=== PATIENT | female | born 1960 | race Caucasian/White ===

== ENCOUNTER → 2018-08-29 15:36 | Outpatient (CLI) | payer OTHER | END | disposition home or self-care (01) | LOC: D.CT 15:36 | DX: C20 Malignant neoplasm of rectum (principal) ==

== ENCOUNTER 2018-09-14 05:37 | Day surgery (SDC) | payer SELFPAY ==
[~2018-09-14] VITALS: Ht 167.6 cm; Wt 68.0 kg
[2018-09-14 06:19] LABS: BASOPHILS 0.2 % (0-2); EOSINOPHILS 4.7 % (0-7); HEMATOCRIT 38.5 % (36.0-48.0); IMMATURE GRANULOCYTES 0.3 % (0-5); LYMPHOCYTES 31.9 % (15-50); MCH 25.4 pg (26.0-34.0); MCHC 31.2 g/dL (31.0-37.0); MCV 81.6 fL (80.0-100.0); MEAN PLATELET VOLUME 9.3 fL (7.4-10.4); MONOCYTES 7.3 % (2-11); NEUTROPHILS 55.6 % (40-80); PLATELET COUNT 261 10x3/uL (130-400); RBC 4.72 10x6/uL (4.00-5.40); RDW 15.2 % (11.5-14.5); WBC 6.4 10x3/uL (4.8-10.8)
[2018-09-14 06:25] LABS: CALC OSMOLALITY 278 mosm/kg (275-300); CARBON DIOXIDE 28.4 mmol/L (21.0-32.0); CHLORIDE - SERUM 100 mmol/L (98-107); CREATININE - SERUM 0.8 mg/dL (0.6-1.3); GLUCOSE 103 mg/dL (74-106); POTASSIUM - SERUM 3.5 mmol/L (3.5-5.1); SODIUM 140 mmol/L (136-145); UREA NITROGEN 13 mg/dL (7-18); eGFR NON AFRICAN AMERICAN 78 mL/min (90-120)
[2018-09-14 06:47] LABS: APTT 26.6 SECONDS (22.8-39.4); INR 0.99 (0.85-1.17); PROTIME 12.6 SECONDS (11.6-15.0)
[2018-09-14 07:22] VITALS: BP 116/71; Ht 167.6 cm; Wt 68.0 kg
[2018-09-14] MEDS ORDERED: NORCO 10-325 TA1 TAB PO (09:00)
--- NOTE | 2018-09-14 11:11 | NUR ---
DC INSTRUCTIONS GIVEN TO PT/FAMILY. STATE UNDERSTANDING. DC'D IV CATH FULLY INTACT. PT VOIDED. PT LEFT UNIT VIA WC AT 1105
--- NOTE | 2018-09-14 13:31 | OP ---
PATIENT NAME: DERRELL LOMBARDO MEDICAL RECORD: [id number] :60 LOCATION:[facility] ADMISSION DATE: SURGEON: PABLO HEADLEY MD DATE OF OPERATION: 09/14/2018 PREOPERATIVE DIAGNOSIS: Adenocarcinoma of the rectum. POSTOPERATIVE DIAGNOSIS: Adenocarcinoma of the rectum. PROCEDURES: 1. Left subclavian vein port placement with fluoroscopic interpretation. 2. Rigid proctoscopy. SURGEON: Pablo Headley MD REPORT OF PROCEDURE: The patient's left chest was prepped and draped in sterile fashion. A needle was used to cannulate the left subclavian vein and a guidewire was advanced with ease. Fluoro was used to note that the wire was in good position in the venous system. A skin incision was made on the left superior lateral chest and a subcutaneous pouch was made over the pectoral fascia. A catheter was tunneled between this pouch and the wire exit site. The port was then sutured to the pectoral fascia using interrupted 2-0 Prolenes times 2. The catheter was cut with a beveled tip at 25 cm. The dilator trocar device was then placed over the wire and the wire and dilator were removed. The catheter tip was advanced with ease through the trocar and the trocar was removed. At the conclusion of the case, we noted that the catheter tip rested in good position at the right atrial superior vena caval junction. This aspirated nonpulsatile dark blood and flushed easily with heparinized saline. The subcutaneous tissues were reapproximated with interrupted 3-0 Vicryl and the skin was closed with running subcutaneous 5-0 Monocryl. After the wound was dressed appropriately, the patient was placed on her left side. A rigid proctoscope was inserted. I could see the mass that was present in the distal rectum. I measured this out. It was between 4 and 5 cm from the anal verge. At this point, we discontinued the rigid proctoscopy. COMPLICATIONS: None. CONDITION: Stable. ANESTHESIA: General endotracheal. BLOOD LOSS: Minimal. TRANSINT:[id number] Voice Confirmation ID: [id number] DOCUMENT ID: [id number] PABLO HEADLEY MD at 133 CC: NICHOLAS ESPINOZA MD, SHAWN SHAFER PRUITT, DAVID and SHANI GONCALVES [id number] DICTATION DATE: 09/14/18904 FRONT END SOFTWARE DEVELOPER: 09/14/1826 [facility] 09/14/18 [facility] [address] [place] [address]
== END 2018-09-14 11:05 | disposition home or self-care (01) ==
LOC: D.OPS 05:37 → D.PAN 08:00 → D.OPS 11:05
PROVIDERS: Anesthesiology; Surgery
DX: C20 Malignant neoplasm of rectum (principal); Z01.812 Encounter for preprocedural laboratory examination

== ENCOUNTER → 2018-10-29 09:09 | Outpatient (CLI) | payer OTHER ==
[2018-09-14 07:22] VITALS: BMI 24.2
[~2018-10-29 09:09] MED LIST: NORCO 10-325 TA1 TAB PO
== END | disposition home or self-care (01) ==
LOC: D.CT 09:09
DX: C20 Malignant neoplasm of rectum (principal)

== ENCOUNTER 2018-11-16 08:51 | Inpatient (IN) | payer OTHER ==
[~2018-11-16] VITALS: Ht 167.6 cm; Wt 64.4 kg
--- NOTE | ~2018-11-16 | DS ---
PATIENT:DERRELL LOMBARDO :60 MEDICAL RECORD: [id number] DISCHARGE SUMMARY ADMISSION DATE: 11/20/18 DISCHARGE DATE: 11/23/18 DATE OF ADMISSION: 11/20/2018 DATE OF DISCHARGE: 11/23/2018 ADMISSION DIAGNOSIS: Rectal cancer. DISCHARGE DIAGNOSIS: Rectal cancer. PROCEDURE: Low anterior resection with diverting ileostomy on 11/20/2018. CONSULTATIONS: None. REPORT OF HOSPITALIZATION: The patient was admitted to the hospital after successful low anterior resection, which required a diverting ileostomy. Postoperatively, the patient did great. Pain was well controlled. Her ostomy began functioning on postop day #2, she was started on clear liquid diet, which she tolerated and was able to be advanced appropriately. Her pain was well controlled. Her main issue was learning ostomy function and care. She was scheduled to be seen by the wound care service for ostomy training and also home health was set up as an outpatient to assist with ostomy care. The patient did have a drain in place, which put out serosanguineous fluid and on the day of discharge it was discontinued. DISCHARGE INSTRUCTIONS: Return to clinic or call with any questions or concerns, fevers, chills, nausea, vomiting or worsening abdominal pain. ACTIVITIES: No heavy lifting or straining for 6 weeks postoperatively. FOLLOWUP: In clinic with me in 10-14 days. DISCHARGE MEDICATIONS: Resume home medications with the inclusion of [place] 10. DISCHARGE DIET: Regular diet as tolerated. TRANSINT:[id number] Voice Confirmation ID: [id number] DOCUMENT ID: [id number] LISBET HEADLEY MD CC: [id number] DICTATION DATE: 11/23/18 1220 INFORMATION SYSTEMS PROJECT MANAGER: 11/24/18 0857 DIS IN 11/23/18 [facility] [address] [place] [id number]
[2018-11-19] MEDS ORDERED: [UNRECOGNIZED DRUG - REMARK] (09:21)
[2018-11-19 10:13] LABS: BASOPHILS 0.2 % (0-2); EOSINOPHILS 2.8 % (0-7); HEMATOCRIT 37.7 % (36.0-48.0); HEMOGLOBIN 11.9 g/dL (12-16); IMMATURE GRANULOCYTES 0.2 % (0-5); LYMPHOCYTES 14.3 % (15-50); MCH 27.4 pg (26.0-34.0); MCHC 31.6 g/dL (31.0-37.0); MCV 86.7 fL (80.0-100.0); MEAN PLATELET VOLUME 9.5 fL (7.4-10.4); MONOCYTES 7.1 % (2-11); NEUTROPHILS 75.4 % (40-80); PLATELET COUNT 254 10x3/uL (130-400); RBC 4.35 10x6/uL (4.00-5.40); RDW 18.1 % (11.5-14.5); WBC 5.7 10x3/uL (4.8-10.8)
[2018-11-19 10:41] LABS: APTT 29.1 SECONDS (22.8-39.4); INR 0.97 (0.85-1.17); PROTIME 12.4 SECONDS (11.6-15.0)
[2018-11-20] VITALS (10 sets, daily range): BP systolic 105–160; BP diastolic 60–75; BMI 23.3
[2018-11-20] MEDS ORDERED: LOMOTIL 2.5-0.1 EAC1 PO (08:36)
--- NOTE | 2018-11-20 10:59 | NUR ---
1022 TIMEOUT FOR WASHING OUT OF RECTUM, MERRY TAFOYA WASHED OUT RECTUM, JUHI.
--- NOTE | 2018-11-20 14:00 | NUR ---
RECIEVED REPORT FROM SAILAJA LAWSON, PACU. PT HAD A LOWER ANTERIOR RESECTION, ILEOSTOMY. POST PROCEDURE VS, BP 137/73, HR 72, SPO2 98, RR 18, T 97. PT ARRIVED IN BED, PT HAVE BLANCO ON, WITH COLOSTOMY BAG ON LEFT SUPRAPUBIC ABDOMEN, COLOSTOMY BAG HAVE A LITTLE BLOODY DRAINAGE. ANT DRAIN TO RIGHT LOWER ABD QUADRANT. IV IN LEFT HAND, 20G. PT CURRENTLY ON SNELLER HAND DILAUDID. INITIAL ASSESMENT COMPLETED. PT WAS NOT A GOOD HISTORIAN BECAUSE SHE WAS A LITTLE SEDATED ON ARRIVAL. FAMILY AT [facility], HELPED TO ANSWER MOST OF THE QUESTION. PT DENIES ANY NEEDS FOR PAIN AT THIS TIME. WILL CPOC. CL IN REACH, BED IN LOW, SR UPX2.
--- NOTE | 2018-11-20 14:26 | NUR ---
EMPTIED 90CC FROM ANT DRAIN AT 1420 IN PACU.
--- NOTE | 2018-11-20 15:10 | OP ---
PATIENT NAME: DERRELL LOMBARDO MEDICAL RECORD: [id number] :60 LOCATION:[id number] ADMISSION DATE:11/20/18 SURGEON: PABLO HEADLEY MD DATE OF OPERATION: 11/20/2018 PREOPERATIVE DIAGNOSIS: Rectal cancer. POSTOPERATIVE DIAGNOSIS: Rectal cancer. PROCEDURE: Low anterior resection with diverting ileostomy. SURGEON: Pablo Headley MD GROUNDS SUPERVISOR: Merlyn King APRN REPORT OF PROCEDURE: The patient's abdomen was prepped and draped in sterile fashion. A midline incision was made in the lower abdomen. Electrocautery was used to dissect through the subcutaneous tissues and through the fascia until we entered the abdominal cavity. There were some adhesions of the omentum to the anterior abdominal wall towards the pelvis and these were taken down with electrocautery. The patient also had some adhesions of the sigmoid colon down to the pelvis from previous total abdominal hysterectomy. We took these down using electrocautery and sharp dissection. We eventually had everything free in the pelvis. I did not feel any evidence of any mass or lesions present in the pelvis. I made a window on the proximal mesorectum and transected the rectum using a 55 blue load ADRYAN stapler. The mesentery was then taken down with sequential clamp and tie technique with care taken to take down the patient's superior hemorrhoidal vessel. We penetrated the posterior avascular plane overlying the pubic bone and followed this down to the base of the pelvis. As we came through this, we were able to visualize the right and left ureters and these were not damage throughout this portion of the procedure. The peritoneal reflection overlying the pelvis was then taken down using electrocautery and using blunt dissection, I was able to dissect through this fatty tissue overlying the rectum until we got down into the pelvis. We eventually took down the lateral stalk vessels using Harmonic scalpel. At this point, we had the rectum completely freed up from all surrounding attachments and the pelvis was free of any structures in the bladder and ureters. I could feel the mass present, but there was some normal tissue distal to this. We used a 30 blue load TA stapler and transected the rectum near the anus. This open end of the bowel was sent off for frozen specimen and reports came back that there was no evidence of carcinoma present at the distal margin of the rectum. At this point, we elected to perform a low anterior resection. An opening was made in the distal sigmoid colon and a 29 EEA anvil was inserted. A 2-0 Prolene was used to make a pursestring around this. We then performed an end-to-end anastomosis with a 29 EEA stapler under direct visualization. At the conclusion of this, we had a 2 intact rings of tissue and the staple line did not have any evidence of a leak when placed under water and air was instilled in the rectum. We then placed a 19-Turkish Ayad drain into the pelvis and brought it out through the left lower quadrant. This was sutured into place with a 2-0 nylon. We then made an opening in the right lower quadrant and using electrocautery, came down through the subcutaneous tissues in 2 layers of fascia and then eviscerated the loop of bowel about 15 cm proximal to the terminal ileum. This bowel was clamped and left in position for diverting loop ileostomy. The abdomen was irrigated out thoroughly with normal saline and care was taken to assure there was no sign of any bleeding. At this point, the midline fascia was OPERATIVE REPORT [id number] DERRELL LOMBARDO closed with running #1 looped PDS and the subcutaneous tissues were reapproximated with running 3-0 Vicryl. The skin was then closed with fatoumata. We then performed maturation of a diverting loop ileostomy. This was done by making a longitudinal incision with electrocautery and then brooking the bowel down on itself using 4-0 Vicryls to fold over the tissues. A 14-Turkish red rubber catheter was used as a bridge and this was tied over the top of this using 3-0 silks. There was a good brooked ileostomy with no sign of any active bleeding. We then applied dressings to all of the wounds. COMPLICATIONS: None. CONDITION: Stable. ANESTHESIA: General endotracheal. BLOOD LOSS: 100 mL. TRANSINT:[id number] Voice Confirmation ID: [id number] DOCUMENT ID: [id number] PABLO HEADLEY MD at 1510 CC: NICHOLAS ESPINOZA MD, Payton SHAFER DAVID [id number] DICTATION DATE: 11/20/18 1328 THERAPY ADMINISTRATIVE ASSISTANT: 11/20/18 1422 ADM IN [place] [id number] [place] [id number]
--- NOTE | 2018-11-20 20:38 | NUR ---
LYING QUEITLY.NO COMPLAINTS VOICED. CARPET INSTALLER IN USE FOR PAIN CONTROL.ANT DRAIN TO LL ABD INTACT AND COMPRESSED.COLOSTOMY APPLIANCE INTACT TO RIGHT ABD WITH SCANT AMT BLOOD TO STOMA SITE. MID ABD DRESSING INTACT WITHOUT DRAINAGE NOTED. CL IN REACH
[2018-11-21 01:33] VITALS: BP 120/42
--- NOTE | 2018-11-21 04:01 | NUR ---
I have reviewed this patient and I concur with the Shift Assessment completed by the Licensed Practical Nurse today this shift.
[2018-11-21 04:48] VITALS: BP 116/50
[2018-11-21 05:20] LABS: BASOPHILS 0 % (0-2); EOSINOPHILS 0 % (0-7); HEMATOCRIT 30.3 % (36.0-48.0); IMMATURE GRANULOCYTES 0.1 % (0-5); LYMPHOCYTES 5.9 % (15-50); MCV 84.9 fL (80.0-100.0); MEAN PLATELET VOLUME 10.1 fL (7.4-10.4); MONOCYTES 8.6 % (2-11); NEUTROPHILS 85.4 % (40-80); PLATELET COUNT 235 10x3/uL (130-400); RBC 3.57 10x6/uL (4.00-5.40); RDW 17.3 % (11.5-14.5)
[2018-11-21 05:38] LABS: CALC OSMOLALITY 273 mosm/kg (275-300); CALCIUM 8.3 mg/dL (8.5-10.1); CARBON DIOXIDE 26.6 mmol/L (21.0-32.0); CHLORIDE - SERUM 102 mmol/L (98-107); CREATININE - SERUM 0.6 mg/dL (0.6-1.3); GLUCOSE 106 mg/dL (74-106); POTASSIUM - SERUM 3.6 mmol/L (3.5-5.1); SODIUM 138 mmol/L (136-145); UREA NITROGEN 6 mg/dL (7-18); eGFR NON AFRICAN AMERICAN > 90 mL/min (90-120)
[2018-11-21 05:43] LABS: WBC 9.8 10x3/uL (4.8-10.8)
[2018-11-21 09:07] VITALS: BP 115/49
--- NOTE | 2018-11-21 10:22 | NUR ---
PT BIJU TITUS BED, NO S/S OF DISTRWESS, PT HAS TORADOL ADDED TO MAR, ADMINISTERED SCHEDULD MEDICATION, PT STATED PAIN IS AT A 0 ADVISED THIS WILL HELP KEEP THE PAIN AT A MINIMUM. CL IN REACH, BED IN LOWEST POSITION, CONTINUE WITH PLAN OF CARE
[2018-11-21 13:27] VITALS: Ht 167.6 cm; Wt 64.4 kg
[2018-11-21 13:29] VITALS: BP 112/58
--- NOTE | 2018-11-21 18:18 | NUR ---
I have reviewed this patient and I concur with the Shift Assessment completed by the Licensed Practical Nurse today this shift.
--- NOTE | 2018-11-21 21:02 | NUR ---
AWAKE,ALERT.NO COMPLAITNS VOCIED. SUPERVISOR WASH HOUSE DILAUDID IN USE FOR PAIN CONTROL.MID ABD INCISION INTACT WITH NO DRAINAGE NOTED. ANT TO LEFT ABD INTACT AND COMPRESSED. COLOSTOMY TO RIGHT SIDE WITH BLOODY DRAINAGE NOTED. CL IN REACH. NO DISTRESS NOTED.
[2018-11-21 21:47] VITALS: BP 92/39
--- NOTE | 2018-11-22 03:04 | NUR ---
I have reviewed this patient and I concur with the Shift Assessment completed by the Licensed Practical Nurse today this shift.
[2018-11-22 04:37] VITALS: BP 108/43
[2018-11-22 05:28] LABS: BASOPHILS 0.1 % (0-2); EOSINOPHILS 1.3 % (0-7); HEMATOCRIT 28.5 % (36.0-48.0); HEMOGLOBIN 8.9 g/dL (12-16); IMMATURE GRANULOCYTES 0.3 % (0-5); LYMPHOCYTES 8.7 % (15-50); MCH 27.1 pg (26.0-34.0); MCHC 31.2 g/dL (31.0-37.0); MCV 86.6 fL (80.0-100.0); MEAN PLATELET VOLUME 9.1 fL (7.4-10.4); MONOCYTES 7.2 % (2-11); NEUTROPHILS 82.4 % (40-80); RBC 3.29 10x6/uL (4.00-5.40); RDW 17.3 % (11.5-14.5); WBC 7.6 10x3/uL (4.8-10.8)
[2018-11-22 05:35] LABS: PLATELET COUNT 184 10x3/uL (130-400)
[2018-11-22 05:46] LABS: CALC OSMOLALITY 272 mosm/kg (275-300); CALCIUM 7.7 mg/dL (8.5-10.1); CARBON DIOXIDE 22.9 mmol/L (21.0-32.0); CHLORIDE - SERUM 104 mmol/L (98-107); CREATININE - SERUM 0.7 mg/dL (0.6-1.3); GLUCOSE 71 mg/dL (74-106); POTASSIUM - SERUM 3.3 mmol/L (3.5-5.1); SODIUM 139 mmol/L (136-145); UREA NITROGEN 5 mg/dL (7-18); eGFR NON AFRICAN AMERICAN > 90 mL/min (90-120)
--- NOTE | 2018-11-22 09:45 | NUR ---
PT RESTING IN BED. RESP EVEN AND UNLABORED. REPORTS PAIN 0/10 AT THIS TIME. VOICES ACTIVITY ASSISTANT CONTROLLING PAIN. IV TO LEFT HAND WITH NS @ 125ML/HR INFUSING VIA PUMP. SITE WITHOUT REDNESS OR EDEMA. MIDLINE DRESSING TO ABDOMEN C/D/I. ANT DRAIN INTACT, DRAINING BLOOD TINGED DRAINAGE. COLOSTOMY STOMA PINK DRAINING DARK LIQUID STOOL. F/C PATENT TO GRAVITY. DENIES FURTHER NEEDS AT THIS TIME. CL WITHIN REACH. ENCOURAGED TO CALL WITH NEEDS. CONTINUE POC
[2018-11-22 10:39] VITALS: BP 96/52
--- NOTE | 2018-11-22 11:38 | MORECARE ---
CASE MANAGEMENT DISCHARGE SUMMARY PATIENT: DERRELL LOMBARDO UNIT: [id number] ADM DATE: 11/20/18 AGE: 58 : 60 SEX: F ROOM/BED: D.2220 AUTHOR: YASIR VINSON PHYSICIAN: REFERRING PHYSICIAN: LISBET HEADLEY MD DATE OF SERVICE: 11/22/18 Discharge Plan Patient Name: DERRELL LOMBARDO Facility: [facility]:[place] : 1960 Planned Disposition: Home with Home Health Anticipated Discharge Date: Discharge Date: Expected LOS: Initial Reviewer: [email or web address] Initial Review Date: 11/20/2018 Generated: 11/22/18 12:38 pm Patient Name: DERRELL LOMBARDO Page [id number] at 1138 All edits/amendments must be made on the electronic document DICTATION DATE: 11/22/181136 BRINE TANK TENDER: KYLIE 11/22/18 1137 RPT#: [id number] DC DATE: STATUS: ADM IN [facility] [address] [place] [address] END OF REPORT
--- NOTE | 2018-11-22 11:47 | MORECARE ---
CASE MANAGEMENT DISCHARGE SUMMARY PATIENT: DERRELL VARGAS UNIT: [id number] ADM DATE: 11/20/18 AGE: 58 : 60 SEX: F ROOM/BED: D.2220 AUTHOR: YASIR VINSON PHYSICIAN: REFERRING PHYSICIAN: LISBET HEADLEY MD DATE OF SERVICE: 11/22/18 Discharge Plan Patient Name: DERRELL VARGAS [facility] [facility] 1960 Planned Disposition: Home with Home Health Anticipated Discharge Date: Discharge Date: Expected LOS: Initial Reviewer: [email or web address] Initial Review Date: 11/20/2018 Generated: 11/22/18 12:46 pm DCPIA - Discharge Planning Initial Assessment Updated by [email or web address]: Telma Jacobs on 11/22/18 11:39 am * Is the patient Alert and Oriented? Yes * How many steps to enter\exit or inside your home? * PCP jose azevedo, [facility] * [facility] * Preadmission Environment Home with Family * ADLs Independent * Equipment None * List name and contact numbers for known caregivers / representatives who currently or will assist patient after discharge: Josef Vargas [phone] * Verbal permission to speak to the caregivers and representatives has been obtained from the patient. N/A * Community resources currently utilized None * Additional services required to return to the preadmission environment? Yes * Can the patient safely return to the preadmission environment? Yes * Has this patient been hospitalized within the prior 30 days at any hospital? No Last DP export: 11/22/18 10:38 a Patient Name: DERRELL VARGAS Page [phone] at 1147 All edits/amendments must be made on the electronic document DICTATION DATE: 11/22/18 1146 USER SUPPORT SPECIALIST: KYLIE 11/22/18 1146 RPT#: [id number] DC DATE: STATUS: ADM IN [facility] [address] [place] [address] END OF REPORT
--- NOTE | 2018-11-22 12:03 | MORECARE ---
CASE MANAGEMENT DISCHARGE SUMMARY PATIENT: DERRELL VARGAS UNIT: [id number] ADM DATE: 11/20/18 AGE: 58 : 60 SEX: F ROOM/BED: D.2220 AUTHOR: ALISSONDOC PHYSICIAN: REFERRING PHYSICIAN: LISBET HEADLEY MD DATE OF SERVICE: 11/22/18 Discharge Plan Patient Name: DERRELL VARGAS Facility: [facility]:[place] : 1960 Planned Disposition: Home with Home Health Anticipated Discharge Date: Discharge Date: Expected LOS: Initial Reviewer: [email or web address] Initial Review Date: 11/20/2018 Generated: 11/22/18 1:03 pm Comments DCP- Discharge Planning Updated by [email or web address]: Telma Jacobs on 11/22/18 11:[address] Patient Name: DERRELL VARGAS Admission Status: Elective Accout number: [id number] Admission Date: 11-20-2018 : 1960 Admission Diagnosis: Attending: LISBET HEADLEY Current LOS: 2 Anticipated DC Date: Planned Disposition: Home with Home Health [facility] Discharge Planning Comments: CM met with patient to complete initial dc planning assessment. CM educated patient on the CM role and verbal consent given by patient to complete assessment. Patient lives at home with her . At discharge patient plans to return home and feels this is a safe discharge. CM discussed availability of home health, rehab services, and medical equipment. She states she is independent with her care, but she is a new ostomy and would like to have home health for ostomy teaching and wound care. Her daughter is coming into town this weekend. LISA with [facility], I called and spoke with Shruti. I also left message with Tahira the wound care nurse for information about supplies. CM will continue to follow and will assist as needed with dc plans/needs. Heavy Line Technician: Telma Jacobs DCPIA - Discharge Planning Initial Assessment Updated by [email or web address]: Telma Jacobs on 11/22/18 11:39 am * Is the patient Alert and Oriented? Yes * How many steps to enter\exit or inside your home? * PCP jose azevedo, [facility] * [facility] * Preadmission Environment Home with Family * ADLs Independent * Equipment None * List name and contact numbers for known caregivers / representatives who currently or will assist patient after discharge: Josef Vargas [phone] * Verbal permission to speak to the caregivers and representatives has been obtained from the patient. N/A * Community resources currently utilized None * Additional services required to return to the preadmission environment? Yes * Can the patient safely return to the preadmission environment? Yes * Has this patient been hospitalized within the prior 30 days at any hospital? No Last DP export: 11/22/18 10:47 a Patient Name: DERRELL VARGAS Page 06618 at 1203 All edits/amendments must be made on the electronic document DICTATION DATE: 11/22/181202 BUFFER NICKEL: KYLIE 11/22/181202 RPT#: [id number] DC DATE: STATUS: ADM IN [facility] [address] [place] [address] END OF REPORT
--- NOTE | 2018-11-22 12:13 | MORECARE ---
CASE MANAGEMENT DISCHARGE SUMMARY PATIENT: DERRELL VARGAS UNIT: [id number] ADM DATE: 11/20/18 AGE: 58 : 60 SEX: F ROOM/BED: D.2220 AUTHOR: ALISSONDOC PHYSICIAN: REFERRING PHYSICIAN: LISBET HEADLEY MD DATE OF SERVICE: 11/22/18 Discharge Plan Patient Name: DERRELL VARGAS Facility: [facility]:[place] : 1960 Planned Disposition: Home with Home Health Anticipated Discharge Date: Discharge Date: Expected LOS: Initial Reviewer: [email or web address] Initial Review Date: 11/20/2018 Generated: 11/22/18 1:12 pm Comments DCP- Discharge Planning Updated by [email or web address]: Telma Jacobs on 11/22/18 11:[address] Patient Name: DERRELL VARGAS Admission Status: Elective Accout number: [id number] Admission Date: 11-20-2018 : 1960 Admission Diagnosis: Attending: LISBET HEADLEY Current LOS: 2 Anticipated DC Date: Planned Disposition: Home with Home Health [facility] Discharge Planning Comments: CM met with patient to complete initial dc planning assessment. CM educated patient on the CM role and verbal consent given by patient to complete assessment. Patient lives at home with her . At discharge patient plans to return home and feels this is a safe discharge. CM discussed availability of home health, rehab services, and medical equipment. She states she is independent with her care, but she is a new ostomy and would like to have home health for ostomy teaching and wound care. Her daughter is coming into town this weekend. LISA with [facility], I called and spoke with Shruti. I also left message with Tahira the wound care nurse for information about supplies. CM will continue to follow and will assist as needed with dc plans/needs. Glost Tile Shader: Telma Jacobs DCPIA - Discharge Planning Initial Assessment Updated by [email or web address]: Telma Jacobs on 11/22/18 11:39 am * Is the patient Alert and Oriented? Yes * How many steps to enter\exit or inside your home? * PCP jose azevedo, [facility] * [facility] * Preadmission Environment Home with Family * ADLs Independent * Equipment None * List name and contact numbers for known caregivers / representatives who currently or will assist patient after discharge: Josef Vargas [phone] * Verbal permission to speak to the caregivers and representatives has been obtained from the patient. N/A * Community resources currently utilized None * Additional services required to return to the preadmission environment? Yes * Can the patient safely return to the preadmission environment? Yes * Has this patient been hospitalized within the prior 30 days at any hospital? No External Providers External Provider: [facility] Next Contact Date: Service Request Date: Service Type: Resolution: Reviewer: Comments: Last DP export: 11/22/18 11:03 a Patient Name: DERRELL VARGAS Page 68336 at 1213 All edits/amendments must be made on the electronic document DICTATION DATE: 11/22/18 1212 CAR PARKER: KYLIE 11/22/18 1212 RPT#: [id number] DC DATE: STATUS: ADM IN [facility] [address] [place] [address] END OF REPORT
[2018-11-22 13:03] VITALS: BP 116/55
--- NOTE | 2018-11-22 15:14 | MORECARE ---
CASE MANAGEMENT DISCHARGE SUMMARY PATIENT: DERRELL VARGAS UNIT: [id number] ADM DATE: 11/20/18 AGE: 58 : 60 SEX: F ROOM/BED: D.2220 AUTHOR: ALISSONDOC PHYSICIAN: REFERRING PHYSICIAN: LISBET HEADLEY MD DATE OF SERVICE: 11/22/18 Discharge Plan Patient Name: DERRELL VARGAS Facility: [facility]:[place] : 1960 Planned Disposition: Home with Home Health Anticipated Discharge Date: Discharge Date: Expected LOS: Initial Reviewer: [email or web address] Initial Review Date: 11/20/2018 Generated: 11/22/18 4:14 pm Comments DCP- Discharge Planning Updated by [email or web address]: Telma Jacobs on 11/22/18 11:[address] Patient Name: DERRELL VARGAS Admission Status: Elective Accout number: [id number] Admission Date: 11-20-2018 : 1960 Admission Diagnosis: Attending: LISBET HEADLEY Current LOS: 2 Anticipated DC Date: Planned Disposition: Home with Home Health [facility] Discharge Planning Comments: CM met with patient to complete initial dc planning assessment. CM educated patient on the CM role and verbal consent given by patient to complete assessment. Patient lives at home with her . At discharge patient plans to return home and feels this is a safe discharge. CM discussed availability of home health, rehab services, and medical equipment. She states she is independent with her care, but she is a new ostomy and would like to have home health for ostomy teaching and wound care. Her daughter is coming into town this weekend. LISA with [facility], I called and spoke with Shruti. I also left message with Tahira the wound care nurse for information about supplies. CM will continue to follow and will assist as needed with dc plans/needs. Ground Transportation Operator: Telma Jacobs DCPIA - Discharge Planning Initial Assessment Updated by [email or web address]: Telma Jacobs on 11/22/18 11:39 am * Is the patient Alert and Oriented? Yes * How many steps to enter\exit or inside your home? * PCP jose azevedo, [facility] * [facility] * Preadmission Environment Home with Family * ADLs Independent * Equipment None * List name and contact numbers for known caregivers / representatives who currently or will assist patient after discharge: Josef Vargas [phone] * Verbal permission to speak to the caregivers and representatives has been obtained from the patient. N/A * Community resources currently utilized None * Additional services required to return to the preadmission environment? Yes * Can the patient safely return to the preadmission environment? Yes * Has this patient been hospitalized within the prior 30 days at any hospital? No External Providers External Provider: [employer] Next Contact Date: Service Request Date: Service Type: Resolution: Reviewer: Comments: Last DP export: 11/22/18 11:12 a Patient Name: DERRELL VARGAS Page 25391 at 1514 All edits/amendments must be made on the electronic document DICTATION DATE: 11/22/181512 SUPERVISOR FORCE ADJUSTMENT: KYLIE 11/22/181512 RPT#: [id number] DC DATE: STATUS: ADM IN [facility] [address] [place] [address] END OF REPORT
[2018-11-22 17:59] VITALS: BP 121/53
[2018-11-22 20:20] VITALS: BP 110/42
--- NOTE | 2018-11-22 22:30 | NUR ---
COLOSTOMY LEAKING. CHANGED OUT APPLIANCE. CHANGED PAD AND GOWN. COLOSTOMY TEACHING. NO OTHER NEEDS. WILL CONTINUE TO MONITOR.
[2018-11-23 04:34] LABS: BASOPHILS 0.2 % (0-2); EOSINOPHILS 3.4 % (0-7); HEMATOCRIT 29.9 % (36.0-48.0); HEMOGLOBIN 9.3 g/dL (12-16); IMMATURE GRANULOCYTES 0.2 % (0-5); LYMPHOCYTES 9.2 % (15-50); MCH 27.1 pg (26.0-34.0); MCHC 31.1 g/dL (31.0-37.0); MCV 87.2 fL (80.0-100.0); MEAN PLATELET VOLUME 9.9 fL (7.4-10.4); PLATELET COUNT 217 10x3/uL (130-400); RBC 3.43 10x6/uL (4.00-5.40); RDW 17.2 % (11.5-14.5); WBC 6.2 10x3/uL (4.8-10.8)
[2018-11-23 05:03] LABS: CALC OSMOLALITY 274 mosm/kg (275-300); CALCIUM 8.2 mg/dL (8.5-10.1); CARBON DIOXIDE 24.5 mmol/L (21.0-32.0); CHLORIDE - SERUM 104 mmol/L (98-107); CREATININE - SERUM 0.6 mg/dL (0.6-1.3); GLUCOSE 85 mg/dL (74-106); POTASSIUM - SERUM 3.2 mmol/L (3.5-5.1); SODIUM 140 mmol/L (136-145); eGFR NON AFRICAN AMERICAN > 90 mL/min (90-120)
[2018-11-23 05:04] LABS: UREA NITROGEN 3 mg/dL (7-18)
[2018-11-23 05:20] VITALS: BP 114/53
--- NOTE | 2018-11-23 07:49 | MORECARE ---
CASE MANAGEMENT DISCHARGE SUMMARY PATIENT: DERRELL VARGAS UNIT: [id number] ADM DATE: 11/20/18 AGE: 58 : 60 SEX: F ROOM/BED: D.2220 AUTHOR: ALISSON,DOC PHYSICIAN: REFERRING PHYSICIAN: LISBET HEADLEY MD DATE OF SERVICE: 11/23/18 Discharge Plan Patient Name: DERRELL VARGAS Facility: [facility]:[place] : 1960 Planned Disposition: Home with Home Health Anticipated Discharge Date: Discharge Date: Expected LOS: Initial Reviewer: [email or web address] Initial Review Date: 11/20/2018 Generated: 11/23/18 8:49 am Comments DCP- Discharge Planning Updated by [email or web address]: Telma Jacobs on 11/23/18 6:[address] [facility] is out of network with patient's insurance, referral sent to [facility] (Patient's second choice) DCP- Discharge Planning Updated by [email or web address]: Telma Jacobs on 11/22/18 11:[address] Patient Name: DERRELL VARGAS Admission Status: Elective Accout number: [id number] Admission Date: 11-20-2018 : 1960 Admission Diagnosis: Attending: LISBET HEADLEY Current LOS: 2 Anticipated DC Date: Planned Disposition: Home with Home Health Primary Insurance: [facility] Discharge Planning Comments: CM met with patient to complete initial dc planning assessment. CM educated patient on the CM role and verbal consent given by patient to complete assessment. Patient lives at home with her . At discharge patient plans to return home and feels this is a safe discharge. CM discussed availability of home health, rehab services, and medical equipment. She states she is independent with her care, but she is a new ostomy and would like to have home health for ostomy teaching and wound care. Her daughter is coming into town this weekend. LISA with [facility] , I called and spoke with Shruti. I also left message with Tahira the wound care nurse for information about supplies. CM will continue to follow and will assist as needed with dc plans/needs. Detailer School Photographs: Telma Jacobs DCPIA - Discharge Planning Initial Assessment Updated by [email or web address]: Telma Jacobs on 11/22/18 11:39 am * Is the patient Alert and Oriented? Yes * How many steps to enter\exit or inside your home? * PCP jose azevedo, [facility] * [facility] * Preadmission Environment Home with Family * ADLs Independent * Equipment None * List name and contact numbers for known caregivers / representatives who currently or will assist patient after discharge: Josef Vargas [phone] * Verbal permission to speak to the caregivers and representatives has been obtained from the patient. N/A * Community resources currently utilized None * Additional services required to return to the preadmission environment? Yes * Can the patient safely return to the preadmission environment? Yes * Has this patient been hospitalized within the prior 30 days at any hospital? No Last DP export: 11/22/18 2:14 p Patient Name: DERRELL VARGAS Page 46155 at 0749 All edits/amendments must be made on the electronic document DICTATION DATE: 11/23/18748 CHAMPAGNE MAKER: KYLIE 11/23/1849 RPT#: [id number] DC DATE: STATUS: ADM IN [facility] [address] [place] [address] END OF REPORT
[2018-11-23] MEDS ORDERED: HYDROCODON-ACE1 EA10 PO (09:04)
[2018-11-23 09:38] VITALS: BP 114/57
--- NOTE | 2018-11-23 11:59 | MORECARE ---
CASE MANAGEMENT DISCHARGE SUMMARY PATIENT: DERRELL LOMBARDO UNIT: [id number] ADM DATE: 11/20/18 AGE: 58 : 60 SEX: F ROOM/BED: D.2220 AUTHOR: ALISSON,DOC PHYSICIAN: REFERRING PHYSICIAN: LISBET HEADLEY MD DATE OF SERVICE: 11/23/18 Discharge Plan Patient Name: DERRELL LOMBARDO Facility: [facility]:[place] : 1960 Planned Disposition: Home with Home Health Anticipated Discharge Date: Discharge Date: Expected LOS: Initial Reviewer: [email or web address] Initial Review Date: 11/20/2018 Generated: 11/23/18 12:59 pm Comments DCP- Discharge Planning Updated by [email or web address]: Telma Jacobs on 11/23/18 10:[address] PATIENT WILL BE DISCHARGED HOME TODAY WITH [facility]. [facility] WILL ORDER HER SUPPLIES THROUGH [facility]. THE HOSPITAL WILL PROVIDE OSTOMY SUPPLIES FOR A FEW DAYS IN ORDER TO GET HER THROUGH TILL HOME HEALTH GETS THEM TO HER. SPOKE WITH RAY AT [facility]. CM WILL CONTINUE TO FOLLOW AND ASSIST WITH DC PLANNING NEEDED DCP- Discharge Planning Updated by [email or web address]: Telma Jacobs on 11/23/18 6:[address] [facility] is out of network with patient's insurance, referral sent to [facility] (Patient's second choice) DCP- Discharge Planning Updated by [email or web address]: Telma Jacobs on 11/22/18 11:[address] Patient Name: DERRELL LOMBARDO Admission Status: Elective Accout number: [id number] Admission Date: 11-20-2018 : 1960 Admission Diagnosis: Attending: LISBET HEADLEY Current LOS: 2 Anticipated DC Date: Planned Disposition: Home with Home Health Primary Insurance: [employer] Discharge Planning Comments: CM met with patient to complete initial dc planning assessment. CM educated patient on the CM role and verbal consent given by patient to complete assessment. Patient lives at home with her . At discharge patient plans to return home and feels this is a safe discharge. CM discussed availability of home health, rehab services, and medical equipment. She states she is independent with her care, but she is a new ostomy and would like to have home health for ostomy teaching and wound care. Her daughter is coming into town this weekend. LISA with [facility], I called and spoke with Shruti. I also left message with Tahira the wound care nurse for information about supplies. CM will continue to follow and will assist as needed with dc plans/needs. Science Professor: Telma Jacobs DCPIA - Discharge Planning Initial Assessment Updated by [email or web address]: Telma Jacobs on 11/22/18 11:39 am * Is the patient Alert and Oriented? Yes * How many steps to enter\exit or inside your home? * PCP jose azevedo, [email or web address] * Pharmacy [facility] * Preadmission Environment Home with Family * ADLs Independent * Equipment None * List name and contact numbers for known caregivers / representatives who currently or will assist patient after discharge: Josef Henaodorothy [phone] * Verbal permission to speak to the caregivers and representatives has been obtained from the patient. N/A * Community resources currently utilized None * Additional services required to return to the preadmission environment? Yes * Can the patient safely return to the preadmission environment? Yes * Has this patient been hospitalized within the prior 30 days at any hospital? No Last DP export: 11/23/18 6:49 a Patient Name: DERRELL LOMBARDO Page [phone] at 1159 All edits/amendments must be made on the electronic document DICTATION DATE: 11/23/181158 HAND WEAVER: KYLIE 11/23/18 1159 RPT#: [id number] DC DATE: STATUS: ADM IN [facility] [address] [place] [address] END OF REPORT
--- NOTE | 2018-11-23 12:45 | NUR ---
PT TEACHING PROVIDED ON OSTOMY CARE, ALONG WITH SUPPLIES UNTIL HOME HEALTH AND DME SEE PT FOLLOWING D/C PT AND BOTH VERBALIZE UNDERSTANDING ON CARE, AND VOICED NO COMPLAINTS OR CONCERNS AT THIS TIME.
== END 2018-11-23 14:26 | disposition home health service (06) | DRG 331 ==
LOC: D.SDCHOLD 11-20 07:50 → D.MS 11-20 07:50 → D.SDCHOLD 11-20 10:00 → D.MS 11-20 14:18
PROVIDERS: Anesthesiology; ADMIT Surgery; ATTEND Surgery
PROC: 0DTP0ZZ Resection of Rectum, Open Approach (ICD-10-PCS; principal; 2018-11-20 10:00)
PROC: 0D1B0Z4 Bypass Ileum to Cutaneous, Open Approach (ICD-10-PCS; 2018-11-20 10:00)
DX: C20 Malignant neoplasm of rectum (principal)

== ENCOUNTER → 2019-01-07 09:58 | Outpatient (CLI) | payer OTHER ==
[2018-11-21 13:27] VITALS: BMI 22.9
[~2019-01-07 09:58] MED LIST changes: +HYDROCODON-ACE1 EA10 PO; +LOMOTIL 2.5-0.1 EAC1 PO; +[UNRECOGNIZED DRUG - REMARK]
== END | disposition home or self-care (01) ==
LOC: D.RAD 09:58
PROVIDERS: ATTEND Surgery
DX: C20 Malignant neoplasm of rectum (principal)

== ENCOUNTER 2019-01-11 07:41 | Inpatient (IN) | payer OTHER ==
[~2019-01-11] VITALS: Ht 152.4 cm; Wt 60.3 kg
--- NOTE | ~2019-01-11 | DS ---
PATIENT:DERRELL LOMBARDO :60 MEDICAL RECORD: [id number] DISCHARGE SUMMARY ADMISSION DATE: 01/15/19 DISCHARGE DATE: 01/17/19 DATE OF ADMISSION: 01/15/2019. DATE OF DISCHARGE: 01/17/2019. ADMISSION DIAGNOSES: 1. Rectal cancer status post LAR. 2. Ileostomy. DISCHARGE DIAGNOSES: 1. Rectal cancer status post LAR. 2. Ileostomy. PROCEDURE: Ileostomy reversal on 01/15/2019. CONSULTATIONS: None. REPORT OF HOSPITALIZATION: The patient was admitted to the hospital after successful ileostomy reversal. The patient did well postoperatively. On postop day #1 she was started on a clear liquid diet and advanced up to full liquid and eventually regular diet by postop day #2. She did well with pain that was controlled with p.o. pain meds and IV Toradol. She was ambulating and having bowel function at the day of discharge. DISCHARGE INSTRUCTIONS: Return to clinic or call with any questions or concerns, fevers, chills, nausea, vomiting, or worsening abdominal pain. Cover the open wound daily with clean gauze and wash it with soap and water. DISCHARGE MEDICATIONS: Resume home medications. FOLLOWUP: In clinic with me in 2-3 weeks. TRANSINT:[id number] Voice Confirmation ID: [id number] DOCUMENT ID: [id number] LISBET HEADLEY MD CC: [id number] DICTATION DATE: 01/17/19 1311 WATER CHASER: 01/17/19 2347 DIS IN 01/17/19 [facility] [address] [place] [address]
[2019-01-14 11:17] LABS: BASOPHILS 0.1 % (0-2); HEMATOCRIT 34.5 % (36.0-48.0); HEMOGLOBIN 10.6 g/dL (12-16); IMMATURE GRANULOCYTES 0.1 % (0-5); LYMPHOCYTES 10.8 % (15-50); MCH 25.3 pg (26.0-34.0); MCHC 30.7 g/dL (31.0-37.0); MCV 82.3 fL (80.0-100.0); MONOCYTES 5.8 % (2-11); NEUTROPHILS 81.2 % (40-80); RBC 4.19 10x6/uL (4.00-5.40); RDW 15.2 % (11.5-14.5); WBC 7.4 10x3/uL (4.8-10.8)
[2019-01-14 11:25] LABS: CALC OSMOLALITY 281 mosm/kg (275-300); CALCIUM 9.6 mg/dL (8.5-10.1); CARBON DIOXIDE 30.2 mmol/L (21.0-32.0); CHLORIDE - SERUM 101 mmol/L (98-107); CREATININE - SERUM 0.8 mg/dL (0.6-1.3); POTASSIUM - SERUM 3.8 mmol/L (3.5-5.1); SODIUM 139 mmol/L (136-145); UREA NITROGEN 16 mg/dL (7-18); eGFR NON AFRICAN AMERICAN 78 mL/min (90-120)
[2019-01-14 11:32] LABS: GLUCOSE 158 mg/dL (74-106)
[2019-01-14 11:35] LABS: APTT 29.8 SECONDS (22.8-39.4); INR 0.99 (0.85-1.17); PROTIME 12.6 SECONDS (11.6-15.0)
[2019-01-14 11:57] LABS: PLATELET COUNT 327 10x3/uL (130-400)
[2019-01-15 06:33] VITALS: BP 113/57; BMI 21.6
--- NOTE | 2019-01-15 08:34 | NUR ---
PREPPED WITH BETADINE SCRUB AND PAINT TO ILEOSTOMY, CHLORAPREP ABD.
[2019-01-15 10:01] VITALS: BP 148/63
--- NOTE | 2019-01-15 20:00 | NUR ---
ASSESSMENT PER FLOWSHEET. IV PATENT LEFT INFUSAPORT OF NS AT 125CC'S/HR. DRESSING TO ABDOMEN C/D/I. SCD'S ON. SR UP X2 CALL LIGHT WITHIN REACH.
--- NOTE | 2019-01-15 20:30 | NUR ---
UP WITH HELP TO BR VOIDS WELL. ASSISSTED BACK TO BED. REQUESTING PAIN MED. SET UP JEWELRY SETTER OF DILAUDID WITH SETTINGS AT 0.2MG Q10MIN W/4MG Q4H L/O. INSTRUCTED PATIENT ON USE OF JEWELRY SETTER.
[2019-01-15 20:41] VITALS: BP 123/66
--- NOTE | 2019-01-16 | NUR ---
RESTING QUIETLY DENIES NEEDS.
[2019-01-16 00:57] VITALS: BP 120/57
--- NOTE | 2019-01-16 01:57 | NUR ---
EYES CLOSED RESPIRATIONS WITH EASE AND UNLABORED.
[2019-01-16 05:54] VITALS: BP 115/59
[2019-01-16 06:07] LABS: BASOPHILS 0.1 % (0-2); EOSINOPHILS 0.1 % (0-7); HEMATOCRIT 30.9 % (36.0-48.0); HEMOGLOBIN 9.4 g/dL (12-16); IMMATURE GRANULOCYTES 0.2 % (0-5); LYMPHOCYTES 9.4 % (15-50); MCH 24.7 pg (26.0-34.0); MCHC 30.4 g/dL (31.0-37.0); MCV 81.3 fL (80.0-100.0); MEAN PLATELET VOLUME 9.3 fL (7.4-10.4); MONOCYTES 8.1 % (2-11); NEUTROPHILS 82.1 % (40-80); PLATELET COUNT 313 10x3/uL (130-400); RDW 15.1 % (11.5-14.5); WBC 8.4 10x3/uL (4.8-10.8)
[2019-01-16 06:20] LABS: CALC OSMOLALITY 277 mosm/kg (275-300); CALCIUM 8.8 mg/dL (8.5-10.1); CARBON DIOXIDE 26.5 mmol/L (21.0-32.0); CHLORIDE - SERUM 103 mmol/L (98-107); CREATININE - SERUM 0.6 mg/dL (0.6-1.3); POTASSIUM - SERUM 3.7 mmol/L (3.5-5.1); SODIUM 139 mmol/L (136-145); UREA NITROGEN 12 mg/dL (7-18); eGFR NON AFRICAN AMERICAN > 90 mL/min (90-120)
[2019-01-16 06:23] LABS: GLUCOSE 107 mg/dL (74-106)
[2019-01-16 08:40] VITALS: BP 125/59
--- NOTE | 2019-01-16 10:52 | NUR ---
MORNING ASSESSMENT COMPLETE. SEE ASSESSMENT FLWSAMT FOR FURHTER DETIALS. PT LYING IN BED AAO X4 TO PERSON, PLACE, TIME, AND SITUATION. DENIES NEEDS AT THIS TIME. CL IN REACH. SIDE RAILS UP X3 FOR PT SAFETY. BED IN LOWEST POSITION.
[2019-01-16 12:03] VITALS: BP 109/53
[2019-01-16 13:09] VITALS: Ht 152.4 cm; Wt 60.3 kg
[2019-01-16 17:29] VITALS: BP 112/62
--- NOTE | 2019-01-16 18:41 | NUR ---
PT LYING IN BED RESTING. DENIES NEEDS AT THIS TIME.
--- NOTE | 2019-01-16 20:00 | NUR ---
ASSESSMENT PER FLOWSHEET. IV PATENT LEFT CHEST INFUSAPORT SALINE LOCKED. DRESSING TO ABDOMEN C./D/I. DENIES NEEDS. SR UP X2 CALL LIGHT WITHIN REACH.
[2019-01-16 21:00] VITALS: BP 131/53
--- NOTE | 2019-01-16 22:00 | NUR ---
MEDS GIVEN PER MAR.
--- NOTE | 2019-01-16 23:53 | NUR ---
EYES CLOSED RESPIRATIONS WITH EASE AND UNLABORED.DENIES NEEDS
[2019-01-17 00:30] VITALS: BP 121/52
--- NOTE | 2019-01-17 04:01 | NUR ---
MEDS GIVEN PER MAR.
[2019-01-17 04:30] VITALS: BP 110/51; BP 147/81
[2019-01-17 09:14] VITALS: BP 107/53
--- NOTE | 2019-01-17 11:24 | NUR ---
MORNING ASSESSMENT COMPLETE. SEE ASSESSMENT FLOWSHEET FOR FURTHER DETAILS. PT LYING IN BED AAO X4 TO PERSON, PLACE, TIME, AND SITUATION. DENIES NEEDS AT THIS TIME. CL IN REACH. SIDE RAILS UP X3 FOR PT SAFETY. BED IN LOWEST POSITION.
[2019-01-17 12:17] VITALS: BP 113/53
--- NOTE | 2019-01-17 15:04 | NUR ---
WENT OVER ALL D/C INSTRUCTIONS. PT STATES UDERSTANDING. LEFT FLOOR VIA W/C WITH ALL PERSONAL BELONGINGS IN HAND.
--- NOTE | 2019-01-17 16:09 | OP ---
PATIENT NAME: DERRELL LOMBARDO MEDICAL RECORD: [id number] :60 LOCATION:D.MS [address]18 ADMISSION DATE:01/15/19 SURGEON: PABLO HEADLEY MD DATE OF OPERATION: 01/15/2019 PREOPERATIVE DIAGNOSES: 1. Ileostomy. 2. Rectal cancer status post LAR. POSTOPERATIVE DIAGNOSES: 1. Ileostomy. 2. Rectal cancer status post LAR. PROCEDURE: Ileostomy reversal. SURGEON: Pablo Headley MD TOOL HONING MACHINE SET UP OPERATOR: Merlyn King APRN REPORT OF OPERATION: The patient's abdomen was prepped and draped in sterile fashion. Using electrocautery, we made a circular incision around the indwelling right lower quadrant ileostomy. Electrocautery was used to dissect through the subcutaneous tissues until we came through the fascia and entered the abdominal cavity. We then took down any adhesions that we could feel with blunt dissection and was able to eviscerate the small bowel through the ileostomy opening. We then made a window at the base of the mesentery on the distal aspect of the ileostomy. We were able to fire a 55 blue load ADRYAN stapler across the small bowel on the afferent and efferent limbs. The mesentery was taken down with sequential clamp and tie technique with 3-0 silks. There was some bleeding at the base of this and this was oversewn with 3-0 silk pop-offs. The small bowel was then opened up on its most distal aspect using electrocautery and a [id number] anastomosis was performed with a 55 blue load ADRYAN stapler on the antimesenteric side. The enterotomies were then closed with a 30 blue load TA stapler. The staple lines were all oversewn with lemberted 3-0 silks. A piece of bowel was placed back into the abdominal cavity and the omentum was rested over top of it. We irrigated out the wound thoroughly with normal saline. The posterior fascial tissue was reapproximated with running 0 Vicryl. The anterior layer of fascia was then closed with multiple interrupted 0 Prolenes. The wound was irrigated out one last time and care was taken to assure there was no sign of any bleeding. The subcutaneous tissues were reapproximated with a 3-0 Vicryl in a pursestring fashion and then the skin was closed with a 2-0 Vicryl in a pursestring fashion. The wound was then dressed with 4 x 4's. COMPLICATIONS: None. CONDITION: Stable. ANESTHESIA: General endotracheal. BLOOD LOSS: 30 mL. TRANSINT:[id number] Voice Confirmation ID: [id number] DOCUMENT ID: [id number] OPERATIVE REPORT [id number] DERRELL LOMBARDO CHRISTIAN MD at 1609 CC: NICHOLAS ESPINOZA MD, SHAWN SHAFER PRUITT, DAVID and SHANI GONCALVES [id number] DICTATION DATE: 01/15/19928 TEST ENGINE MECHANIC: 01/15/19 1032 ADM IN [facility] [address] [place] [id number]
== END 2019-01-17 19:29 | disposition home or self-care (01) | DRG 331 ==
LOC: D.SDCHOLD 01-15 05:40 → D.MS 01-15 05:40 → D.SDCHOLD 01-15 08:00 → D.MS 01-15 10:00
PROVIDERS: Anesthesiology; ADMIT Surgery; ATTEND Surgery
PROC: 0DSB0ZZ Reposition Ileum, Open Approach (ICD-10-PCS; principal; 2019-01-15 08:00)
DX: Z43.2 Encounter for attention to ileostomy (principal); Z85.048 Personal history of other malignant neoplasm of rectum, rectosigmoid junction, and anus

== ENCOUNTER → 2019-01-30 15:42 | Outpatient (CLI) | payer OTHER ==
[2019-01-16 13:09] VITALS: BMI 25.9
== END | disposition home or self-care (01) ==
LOC: D.LABREF 15:42
PROVIDERS: ATTEND Surgery
DX: R19.7 Diarrhea, unspecified (principal); Z98.890 Other specified postprocedural states

== ENCOUNTER 2019-02-25 11:15 | Observation (INO) | payer OTHER ==
[~2019-02-25] VITALS: Ht 152.4 cm; Wt 59.0 kg
[2019-02-25 13:11] LABS: BASOPHILS 0.2 % (0-2); EOSINOPHILS 0.8 % (0-7); HEMATOCRIT 30.3 % (36.0-48.0); HEMOGLOBIN 9.1 g/dL (12-16); IMMATURE GRANULOCYTES 0.2 % (0-5); LYMPHOCYTES 8.5 % (15-50); MCH 23.5 pg (26.0-34.0); MCV 78.3 fL (80.0-100.0); MEAN PLATELET VOLUME 8.8 fL (7.4-10.4); MONOCYTES 11.9 % (2-11); NEUTROPHILS 78.4 % (40-80); RBC 3.87 10x6/uL (4.00-5.40); RDW 16.6 % (11.5-14.5)
[2019-02-25 13:14] LABS: PLATELET COUNT 239 10x3/uL (130-400)
[2019-02-25 13:31] LABS: ALBUMIN 3.1 g/dL (3.4-5.0); ALKALINE PHOSPHATASE 71 U/L (46-116); ALT (SGPT) 26 U/L (10-68); BILIRUBIN - TOTAL 0.28 mg/dL (0.2-1.3); CALC OSMOLALITY 281 mosm/kg (275-300); CALCIUM 8.4 mg/dL (8.5-10.1); CARBON DIOXIDE 30.5 mmol/L (21.0-32.0); CHLORIDE - SERUM 103 mmol/L (98-107); CREATININE - SERUM 0.6 mg/dL (0.6-1.3); GLUCOSE 120 mg/dL (74-106); POTASSIUM - SERUM 3.8 mmol/L (3.5-5.1); PROTEIN - SERUM 6.7 g/dL (6.4-8.2); SODIUM 141 mmol/L (136-145); UREA NITROGEN 13 mg/dL (7-18); eGFR NON AFRICAN AMERICAN > 90 mL/min (90-120)
[2019-02-25 17:00] VITALS: BP 90/44; BMI 25.4
--- NOTE | 2019-02-25 17:09 | NUR ---
I have reviewed this patient and I concur with the Shift Assessment completed by the Licensed Practical Nurse today this shift.
--- NOTE | 2019-02-25 19:52 | NUR ---
PATIENT LAYING IN BED. NO COMPLAINTS AT THIS TIME. NO DISTRESS NOTED.
[2019-02-25 20:00] VITALS: BP 90/44
[2019-02-26] VITALS (10 sets, daily range): BP systolic 89–116; BP diastolic 37–73; Ht 152.4 cm; Wt 59.0 kg
--- NOTE | 2019-02-26 01:59 | NUR ---
PATIENT LAYING IN BED. NO COMPLAINTS AT THIS TIME. NO DISTRESS NOTED.
--- NOTE | 2019-02-26 04:34 | NUR ---
I have reviewed this patient and I concur with the Shift Assessment completed by the Licensed Practical Nurse today this shift.
--- NOTE | 2019-02-26 06:00 | NUR ---
PATIENT LAYING IN BED, EYES CLOSED, CHEST RISING AND FALLING. NO DISTRESS NOTED.
--- NOTE | 2019-02-26 07:42 | NUR ---
RESTING IN BED. ALERT AND ORIENTED X 3. LUNGS CLEAR BILATERALLY IN ALL WILLIAMSON. HEART SOUNDS S1 AND S2 HEARD IN ALL WILLIAM[place]. BOWEL SOUNDS ACTIVE X 4. SKIN INTACT WITHOUT REDNESS. NPO FOR PROCEDURE TODAY. DENIES PAIN. DENIES NEEDS. BED LOW. CALL LAURENT AND PERSONAL ITEMS IN REACH. WILL CONTINUE TO MONITOR.
--- NOTE | 2019-02-26 10:39 | NUR ---
RESTING IN BED. DENIES PAIN. DENIES NEEDS. WILL CONTINUE TO MONITOR.
--- NOTE | 2019-02-26 13:40 | NUR ---
PATIENT RETURNED FROM PROCEDURE. NO ACTIVE BLEEDING NOTED. VITALS STABLE. DENIES PAIN. DENIES NEEDS. WILL CONTINUE TO MONITOR.
--- NOTE | 2019-02-26 14:21 | NUR ---
RESTING IN BED. VITALS REMAIN STABLE. WILL CONTINUE TO MONITOR.
[2019-02-26] MEDS ORDERED: LEVAQUIN750 MG PO (15:42)
[2019-02-26] MEDS ORDERED: FLAGYL500 MG PO (15:42)
--- NOTE | 2019-02-26 15:45 | OP ---
PATIENT NAME: DERRELL LOMBARDO MEDICAL RECORD: [id number] :60 LOCATION:D.MS [address]2239 ADMISSION DATE:02/25/19 SURGEON: PABLO HEADLEY MD DATE OF OPERATION: 02/26/2019 PREOPERATIVE DIAGNOSES: 1. Rectovaginal fistula. 2. Rectal cancer. POSTOPERATIVE DIAGNOSES: 1. Rectovaginal fistula. 2. Rectal cancer. PROCEDURE: Anal exam under anesthesia and vaginal exam under anesthesia. SURGEON: Pablo Headley MD REPORT OF PROCEDURE: The patient was placed in lithotomy position and the perineal region was prepped and draped in sterile fashion. The patient had stool present within the vaginal vault. I was able to scoop this out and perform an evaluation of the vagina with a bivalve speculum. I could see the end of the vagina from previous hysterectomy. About 4 cm from the vaginal opening, there was a fistula tract present just to the right of midline. This was approximately 1 cm in greatest diameter. There was firmness to the tissue around it, but no distinct masses. At this point, I took some forceps and was able to grasp the edges of the fistula tract and took multiple biopsies from multiple sites on the fistula tract and sent these off for permanent specimen. There was no evidence of any bleeding following this. Then, I performed an anal exam under anesthesia by inserting a Estefania endoscope. I could see the evidence of the fistula tract present coming from the anterior aspect of the anus. This was just distal to the previous anastomosis from a low anterior resection. I did not see any evidence of any proctitis or ulcerations visible. There was a lot of inflammation to the tissue there, which made it indurated. This induration was mainly on the anterior aspect of the rectum near the posterior wall of the vagina. I did not feel any evidence of any other masses or lesions. The patient's anastomosis was tight, so using digital manipulation, I tried to dilate up the opening to allow ease with bowel movements. Following this, there was a small amount of bleeding present, but nothing that required any surgical treatment. We then irrigated out the vagina and rectum. I attempted to perform a rigid proctoscopy, but I could ever get the proctoscope past the anastomosis secondary to the stenosis. At this point, we discontinued the surgery. COMPLICATIONS: None. CONDITION: Stable. ANESTHESIA: General endotracheal. BLOOD LOSS: Minimal. TRANSINT:[id number] Voice Confirmation ID: [id number] DOCUMENT ID: [id number] OPERATIVE REPORT [id number] DERRELL LOMBARDO CHRISTIAN MD at 1545 CC: NICHOLAS ESPINOZA MD, SAM BOYER and SHANI GONCALVES DO [id number] DICTATION DATE: 02/26/19 1259 SUPERVISOR INSTRUMENT MAINTENANCE: 02/26/19 1353 ADM IN [place] [address] [place] [address]
--- NOTE | 2019-02-26 16:52 | NUR ---
SLEEPING. WILL CONTINUE TO MONITOR.
--- NOTE | 2019-02-26 17:30 | NUR ---
DISCHARGE EDUCATION PROVIDED BOTH WRITTEN AND VERBAL. VERBALIZED UNDERSTANDING. DENIES FURTHER QUESTIONS. ORDER PLACED FOR HEPARIN INJECTION FOR PORT. PORT REMOVED WITHOUT DIFFICULTY. DENIES FURTHER NEEDS. STATES WILL TAKE PT HOME AFTER DINNER.
--- NOTE | 2019-02-26 18:06 | NUR ---
PATIENT DISCHARGED HOME WITH WITH ALL BELONGINGS.
== END 2019-02-26 18:06 | disposition home or self-care (01) ==
LOC: D.SDCHOLD 11:15 → D.MS 11:15 → D.SDCHOLD 11:18 → OBSVTIME 11:19 → D.MS 11:53
PROVIDERS: ADMIT Surgery; ATTEND Surgery
DX: N82.3 Fistula of vagina to large intestine (principal); C20 Malignant neoplasm of rectum

== ENCOUNTER 2019-03-01 08:52 | Inpatient (IN) | payer OTHER ==
[~2019-03-01] VITALS: Ht 167.6 cm; Wt 59.0 kg
--- NOTE | ~2019-03-01 | OP ---
PATIENT NAME: DERRELL LOMBARDO MEDICAL RECORD: [id number] :60 LOCATION:D.MS [address]ales2212 ADMISSION DATE:03/01/19 SURGEON: PABLO HEADLEY MD DATE OF OPERATION: 03/01/2019 PREOPERATIVE DIAGNOSES: 1. Rectovaginal fistula. 2. Rectal cancer. POSTOPERATIVE DIAGNOSES: 1. Rectovaginal fistula. 2. Rectal cancer. 3. Laparoscopic sigmoid colostomy. SURGEON: Pablo Headley MD REPORT OF PROCEDURE: The patient's abdomen was prepped and draped in sterile fashion. A Veress needle was inserted in the left upper quadrant and the abdomen was insufflated. A 5-mm Visiport trocar was then inserted in the right upper quadrant and at this point, we were able to inspect the abdominal cavity. The Veress needle was noted to be in the left upper quadrant and there was no sign of any injury to bowel or surrounding structures. A 5-mm trocar was placed in the upper midline and a 12-mm trocar was placed in the right lower quadrant. There were some adhesions present in the midline and these were teased down easily with blunt dissection. There were more adhesions present down towards the pelvis, but since we did not need to be in that area, we decided to just leave these alone. The patient's sigmoid colon was easily visualized and was fairly mobile. A window was made in the mesocolon just below the mid portion of the sigmoid colon and a 75 blue load Endo-ADRYAN stapler was used to transect the bowel. We then transected the small vascular bundle that was present in the mesorectum with a 75 white load Endo-ADRYAN stapler. At this point, we could see where the bowel would come up to the abdominal wall easily. A skin incision was made in circular using a 10 blade in the patient's left lower quadrant. Electrocautery was used to dissect through the subcutaneous tissues. A cruciate incision was made with electrocautery on the anterior fascia. We then the rectus musculature and made a longitudinal incision through the posterior fascial layer. A piece of bowel was eviscerated through this wound and clamped into place with a [place]. We then removed the insufflation and the trocars. The 12-mm trocar site fascia was closed with a single interrupted 0 Vicryl. The wounds were infused with a total of 10 mL of 0.25% Marcaine with epinephrine and then closed with subcutaneous 5-0 Monocryl. We dressed the wounds appropriately and then placed towels over them. We then matured the ostomy in a Alycia fashion using multiple interrupted 4-0 Vicryls. The ostomy appeared viable. It was pink and had no evidence of necrosis. We then placed an ostomy bag around the wound. COMPLICATIONS: None. CONDITION: Stable. ANESTHESIA: General endotracheal and local. BLOOD LOSS: Minimal. TRANSINT:[id number] Voice Confirmation ID: [id number] DOCUMENT ID: [id number] OPERATIVE REPORT [id number] DERRELL LOMBARDO CHRISTIAN MD CC: NICHOLAS ESPINOZA MD, PAU BUITRAGO MD and SAM [id number] DICTATION DATE: 03/01/19 152 SMALL BUSINESS BANKING OFFICER: 03/01/192226 ADM IN [facility] [address] [place] [id number]
[~2019-03-01 08:52] MED LIST changes: +FLAGYL500 MG PO; +LEVAQUIN750 MG PO
[2019-03-01 09:13] LABS: HEMATOCRIT 33.2 % (36.0-48.0); HEMOGLOBIN 10.1 g/dL (12-16); MCH 23.4 pg (26.0-34.0); MCHC 30.4 g/dL (31.0-37.0); MEAN PLATELET VOLUME 8.6 fL (7.4-10.4); RBC 4.31 10x6/uL (4.00-5.40); RDW 16.8 % (11.5-14.5); WBC 3.9 10x3/uL (4.8-10.8)
[2019-03-01] MEDS ORDERED: LOMOTIL 2.5-0.1 EAC1 PO (09:51)
[2019-03-01 09:56] VITALS: BP 133/63; BMI 21.0
[2019-03-01 15:49] VITALS: BP 127/57
--- NOTE | 2019-03-01 16:06 | NUR ---
PATIENT SCDS ON AND WORKING
[2019-03-01 16:37] VITALS: BP 127/57; BMI 21.0
--- NOTE | 2019-03-01 19:30 | NUR ---
PT ALERT AND ORIENTED WITH FAMILY IN ROOM. PT HAS FOLY CATHETER WITH YELLOW URINE. HAS LOWER LEFT QUAD OSTOMY WITH SMALL AMOUNT THIN DARK LIQUID INSIDE. ON ROOM AIR. HAS LEFT PORT WITH NS @ 50. DENIES PAIN OF ANY KIND AT THIS TIME. HAS 5 TED SITES TO ABDOMEN THAT ARE ALL CLEAN DRY QAND INTACT. DENIES FURTHER NEEDS AT THIS TIME.
[2019-03-01 20:23] VITALS: BP 96/63
[2019-03-02 00:27] VITALS: BP 102/50
--- NOTE | 2019-03-02 03:44 | NUR ---
I have reviewed this patient and I concur with the Shift Assessment completed by the Licensed Practical Nurse today this shift.
[2019-03-02 05:12] VITALS: BP 104/48
--- NOTE | 2019-03-02 08:00 | NUR ---
PT RESTING IN BED WITH EYES OPEN CALL LIGHT IN REACH WILL MONITER
[2019-03-02 09:41] VITALS: BP 107/50
[2019-03-02] MEDS ORDERED: NORCO-10 PO (12:53)
[2019-03-02 12:59] VITALS: BP 104/51
[2019-03-02 13:06] VITALS: Ht 167.6 cm; Wt 59.0 kg
--- NOTE | 2019-03-02 14:00 | NUR ---
DCD BLANCO TIP BULB INTACT PT TOLERATED WELL
[2019-03-02] MEDS ORDERED: ULTRAM50 MG PO (15:30)
--- NOTE | 2019-03-02 15:43 | NUR ---
I have reviewed this patient and I concur with the Shift Assessment completed by the Licensed Practical Nurse today this shift.
--- NOTE | 2019-03-02 16:00 | NUR ---
HUBBER NEEDLE REMOVED FROM LEFT CHEST INFUSAPORT TIP INTACT PT TOLERATED WELL
--- NOTE | 2019-03-02 16:33 | NUR ---
PT DISCHARGED TO HOME WITH FRIEND DISCHARGE SUMMARY AND MEDS REVIEWED WITH PT NO QUESTIONS OR CONCERNS TOLERATED WELL
--- NOTE | 2019-03-02 18:39 | MORECARE ---
CASE MANAGEMENT DISCHARGE SUMMARY PATIENT: DERRELL LOMBARDO UNIT: [id number] ADM DATE: 03/01/19 AGE: 58 : 60 SEX: F ROOM/BED: D.2212 AUTHOR: YASIR VINSON PHYSICIAN: REFERRING PHYSICIAN: LISBET HEADLEY MD DATE OF SERVICE: 03/02/19 Discharge Plan Patient Name: DERRELL LOMBARDO Facility: [facility]:[place] : 1960 Planned Disposition: Home Anticipated Discharge Date: 03/02/19 Discharge Date: 03/02/2019 Expected LOS: 1 Initial Reviewer: [email or web address] Initial Review Date: 03/01/2019 Generated: 03/02/19 7:39 pm Patient Name: DERRELL LOMBARDO Page 76339 at 1839 All edits/amendments must be made on the electronic document DICTATION DATE: 03/02/191838 ACTIVITY THERAPY TEACHER: KYLIE 03/02/191838 RPT#: [id number] DC DATE:03/02/19 STATUS: DIS IN [facility] [address] [place] [address] END OF REPORT
--- NOTE | 2019-03-02 18:46 | MORECARE ---
CASE MANAGEMENT DISCHARGE SUMMARY PATIENT: DERRELL LOMBARDO UNIT: [id number] ADM DATE: 03/01/19 AGE: 58 : 60 SEX: F ROOM/BED: D.2212 AUTHOR: YASIR VINSON PHYSICIAN: REFERRING PHYSICIAN: LISBET HEADLEY MD DATE OF SERVICE: 03/02/19 Discharge Plan Patient Name: DERRELL LOMBARDO Facility: [facility]:[place] : 1960 Planned Disposition: Home Anticipated Discharge Date: 03/02/19 Discharge Date: 03/02/2019 Expected LOS: 1 Initial Reviewer: [email or web address] Initial Review Date: 03/01/2019 Generated: 03/02/19 7:46 pm DCPIA - Discharge Planning Initial Assessment Updated by [email or web address]: Denise Castellanos on 03/02/19 6:40 pm * Is the patient Alert and Oriented? Yes * How many steps to enter\exit or inside your home? NONE * [facility] * Preadmission Environment Home with Family * ADLs Independent * List name and contact numbers for known caregivers / representatives who currently or will assist patient after discharge: JEREMY LOMBARDO- SPOUSE- [phone] * Verbal permission to speak to the caregivers and representatives has been obtained from the patient. Yes * Community resources currently utilized None * Please name any agencies selected above. N/A * Additional services required to return to the preadmission environment? No * Can the patient safely return to the preadmission environment? Yes * Has this patient been hospitalized within the prior 30 days at any hospital? Yes Last DP export: 03/02/19 5:39 p Patient Name: DERRELL LOMBARDO Page [id number] at 1846 All edits/amendments must be made on the electronic document DICTATION DATE: 03/02/191845 COAL OR ORE CONTROLLER: KYLIE 03/02/191845 RPT#: [id number] DC DATE:03/02/19 STATUS: DIS IN [facility] [address] [place] [address] END OF REPORT
--- NOTE | 2019-03-02 18:53 | MORECARE ---
CASE MANAGEMENT DISCHARGE SUMMARY PATIENT: DERRELL LOMBARDO UNIT: [id number] ADM DATE: 03/01/19 AGE: 58 : 60 SEX: F ROOM/BED: D.2212 AUTHOR: ALISSON,DOC PHYSICIAN: REFERRING PHYSICIAN: LISBET HEADLEY MD DATE OF SERVICE: 03/02/19 Discharge Plan Patient Name: DERRELL LOMBARDO Facility: [facility]:[place] : 1960 Planned Disposition: Home Anticipated Discharge Date: 03/02/19 Discharge Date: 03/02/2019 Expected LOS: 1 Initial Reviewer: [email or web address] Initial Review Date: 03/01/2019 Generated: 03/02/19 7:53 pm Comments DCP- Discharge Planning Updated by [email or web address]: Denise Castellanos on 03/02/19 5:[address] LATE ENTRY 1230 DR HEADLEY ASK CM TO MEET WITH THE PATIENT TO ASSESS HER NEEDS. CM TO THE BEDSIDE. INTRODUCED SELF AND EXPLAINED CM ROLE. HER WAS AT THE BEDSIDE. SHE GAVE PERMISSION FOR CM TO PROCEED WITH HER BEING PRESENT. SHE DENIES ANY NEEDS, DOES NOT HAVE HOME HEALTH SERVICES. WHEN ASK IF SHE HAD SUPPLIES, SHE DID NOT. CM STATED WE WOULD SEND HER HOME W/ SOME SUPPLIES. SHE DID NOT HAVE AN OPPORTUNITY TO SEE [facility] WOUND CARE NURSE FOR ANY OSTOMY TEACHING THE PREVIOUS ADMIT OR THIS ADMIT. SHE IS AWARE THAT [facility] HAS AN OSTOMY NURSE AND SHE HAS HER PHONE NUMBER. CM SEARCHED FOR THE OSTOMY ASSOCIATION CONTACT PHONE NUMBER BUT COULD NOT ACCESS THE SITE. CM WILL SEARCH FOR A LOCAL CONTACT. SHE DECLINES ANY HOME HEALTH NEEDS. AMADA DID SPEAK WITH NILES, HER NURSE TODAY. CM REQUESTED THAT SHE ASSIST PATIENT WITH SUPPLIES IT IS THE WEEKEND. CM CONFIRMED THE PATIENT HAS RECEIVED THE SUPPLIES BFORE DISCHARGE. PHARMACY- [facility] [facility]. DCPIA - Discharge Planning Initial Assessment Updated by [email or web address]: Denise Castellanos on 03/02/19 6:40 pm * Is the patient Alert and Oriented? Yes * How many steps to enter\exit or inside your home? NONE * Pharmacy [facility] [address] [facility] * Preadmission Environment Home with Family * ADLs Independent * List name and contact numbers for known caregivers / representatives who currently or will assist patient after discharge: JEREMY LOMBARDO- SPOUSE- [phone] * Verbal permission to speak to the caregivers and representatives has been obtained from the patient. Yes * Community resources currently utilized None * Please name any agencies selected above. N/A * Additional services required to return to the preadmission environment? No * Can the patient safely return to the preadmission environment? Yes * Has this patient been hospitalized within the prior 30 days at any hospital? Yes Last DP export: 03/02/19 5:46 p Patient Name: DERRELL LOMBARDO Page [phone] at 1853 All edits/amendments must be made on the electronic document DICTATION DATE: 03/02/191852 FACILITIES ENGINEERING MANAGER: KYLIE 03/02/191852 RPT#: [id number] DC DATE:03/02/19 STATUS: DIS IN [facility] [address] [place] [address] END OF REPORT
--- NOTE | 2019-03-04 08:46 | MORECARE ---
CASE MANAGEMENT DISCHARGE SUMMARY PATIENT: DERRELL LOMBARDO UNIT: [id number] ADM DATE: 03/01/19 AGE: 58 : 60 SEX: F ROOM/BED: D.2212 AUTHOR: ALISSON,DOC PHYSICIAN: REFERRING PHYSICIAN: LISBET HEADLEY MD DATE OF SERVICE: 03/04/19 Discharge Plan Patient Name: DERRELL LOMBARDO Facility: [facility]:[place] : 1960 Planned Disposition: Home Anticipated Discharge Date: 03/02/19 Discharge Date: 03/02/2019 Expected LOS: 1 Initial Reviewer: [email or web address] Initial Review Date: 03/01/2019 Generated: 03/04/19 9:46 am Comments DCP- Discharge Planning Updated by [email or web address]: Denise Castellanos on 03/02/19 5:[address] LATE ENTRY 1230 DR HEADLEY ASK CM TO MEET WITH THE PATIENT TO ASSESS HER NEEDS. CM TO THE BEDSIDE. INTRODUCED SELF AND EXPLAINED CM ROLE. HER WAS AT THE BEDSIDE. SHE GAVE PERMISSION FOR CM TO PROCEED WITH HER BEING PRESENT. SHE DENIES ANY NEEDS, DOES NOT HAVE HOME HEALTH SERVICES. WHEN ASK IF SHE HAD SUPPLIES, SHE DID NOT. CM STATED WE WOULD SEND HER HOME W/ SOME SUPPLIES. SHE DID NOT HAVE AN OPPORTUNITY TO SEE [facility] WOUND CARE NURSE FOR ANY OSTOMY TEACHING THE PREVIOUS ADMIT OR THIS ADMIT. SHE IS AWARE THAT [facility] HAS AN OSTOMY NURSE AND SHE HAS HER PHONE NUMBER. CM SEARCHED FOR THE OSTOMY ASSOCIATION CONTACT PHONE NUMBER BUT COULD NOT ACCESS THE SITE. CM WILL SEARCH FOR A LOCAL CONTACT. SHE DECLINES ANY HOME HEALTH NEEDS. AMADA DID SPEAK WITH NILES, HER NURSE TODAY. CM REQUESTED THAT SHE ASSIST PATIENT WITH SUPPLIES IT IS THE WEEKEND. CM CONFIRMED THE PATIENT HAS RECEIVED THE SUPPLIES BFORE DISCHARGE. PHARMACY- [facility] [address] DCPIA - Discharge Planning Initial Assessment Updated by [email or web address]: Denise Castellanos on 03/02/19 6:40 pm * Is the patient Alert and Oriented? Yes * How many steps to enter\exit or inside your home? NONE * Pharmacy [facility] [address] * Preadmission Environment Home with Family * ADLs Independent * List name and contact numbers for known caregivers / representatives who currently or will assist patient after discharge: JEREMY LOMBARDO- SPOUSE- [phone] * Verbal permission to speak to the caregivers and representatives has been obtained from the patient. Yes * Community resources currently utilized None * Please name any agencies selected above. N/A * Additional services required to return to the preadmission environment? No * Can the patient safely return to the preadmission environment? Yes * Has this patient been hospitalized within the prior 30 days at any hospital? Yes Last DP export: 03/02/19 5:53 p Patient Name: DERRELL LOMBARDO Page [id number] at 0846 All edits/amendments must be made on the electronic document DICTATION DATE: 03/04/19845 GAS GENERATOR OPERATOR: KYLIE 03/04/19845 RPT#: [id number] DC DATE:03/02/19 STATUS: DIS IN [facility] [address] [place] [address] END OF REPORT
== END 2019-03-02 16:44 | disposition home or self-care (01) | DRG 330 ==
LOC: D.SDCHOLD 09:04 → D.MS 09:04 → D.SDCHOLD 10:45 → D.MS 15:02
PROVIDERS: Anesthesiology; ADMIT Surgery; ATTEND Surgery
PROC: 0D1N4Z4 Bypass Sigmoid Colon to Cutaneous, Percutaneous Endoscopic Approach (ICD-10-PCS; principal; 2019-03-01 10:45)
DX: N82.3 Fistula of vagina to large intestine (principal); C18.9 Malignant neoplasm of colon, unspecified

== ENCOUNTER → 2019-08-29 08:22 | Outpatient (CLI) | payer OTHER ==
[2019-03-02 13:06] VITALS: BMI 20.9
[~2019-08-29 08:22] MED LIST changes: +NORCO-10 PO; +ULTRAM50 MG PO
== END | disposition home or self-care (01) ==
LOC: D.CT 08:22
PROVIDERS: ATTEND Surgery
DX: Z85.048 Personal history of other malignant neoplasm of rectum, rectosigmoid junction, and anus (principal)

== ENCOUNTER 2019-10-01 05:37 | Day surgery (SDC) | payer OTHER ==
[~2019-10-01] VITALS: Ht 167.6 cm; Wt 61.8 kg
[2019-10-01 06:08] LABS: BASOPHILS 0.2 % (0-2); EOSINOPHILS 3.6 % (0-7); HEMATOCRIT 41.1 % (36.0-48.0); HEMOGLOBIN 13.2 g/dL (12-16); IMMATURE GRANULOCYTES 0.2 % (0-5); LYMPHOCYTES 20.1 % (15-50); MCH 29.7 pg (26.0-34.0); MCHC 32.1 g/dL (31.0-37.0); MCV 92.4 fL (80.0-100.0); MEAN PLATELET VOLUME 9.1 fL (7.4-10.4); MONOCYTES 8.6 % (2-11); NEUTROPHILS 67.3 % (40-80); RBC 4.45 10x6/uL (4.00-5.40); RDW 14.4 % (11.5-14.5); WBC 4.4 10x3/uL (4.8-10.8)
[2019-10-01 06:18] LABS: PLATELET COUNT 212 10x3/uL (130-400)
[2019-10-01 06:23] LABS: CALC OSMOLALITY 280 mosm/kg (275-300); CALCIUM 9.2 mg/dL (8.5-10.1); CARBON DIOXIDE 32.6 mmol/L (21.0-32.0); CHLORIDE - SERUM 104 mmol/L (98-107); CREATININE - SERUM 0.8 mg/dL (0.6-1.3); GLUCOSE 100 mg/dL (74-106); POTASSIUM - SERUM 3.5 mmol/L (3.5-5.1); SODIUM 142 mmol/L (136-145); UREA NITROGEN 8 mg/dL (7-18); eGFR NON AFRICAN AMERICAN 78 mL/min (90-120)
[2019-10-01 06:33] LABS: APTT 26.9 SECONDS (22.8-39.4)
[2019-10-01 06:35] LABS: INR 0.83 (0.85-1.17); PROTIME 11.3 SECONDS (11.6-15.0)
[2019-10-01 07:17] VITALS: BP 113/60; Ht 167.6 cm; Wt 61.8 kg
--- NOTE | 2019-10-01 09:04 | NUR ---
0900 IV DC'D. CATHETER TIP INTACT. NO BLEEDING AT SITE AFTER HOLDING PRESSURE. BANDAID APPLIED.
--- NOTE | 2019-10-02 11:34 | OP ---
PATIENT NAME: DERRELL LOMBARDO MEDICAL RECORD: [id number] :60 LOCATION:D.OPS ADMISSION DATE: SURGEON: PABLO HEADLEY MD DATE OF OPERATION: 10/01/2019 PREOPERATIVE DIAGNOSES: 1. History of rectal cancer status post LAR. 2. Rectovaginal fistula. 3. Colostomy situ. POSTOPERATIVE DIAGNOSES: 1. History of rectal cancer status post LAR. 2. Rectovaginal fistula. 3. Colostomy situ. PROCEDURE: Flexible sigmoidoscopy and vaginal exam under anesthesia. SURGEON: Pablo Headley MD REPORT OF PROCEDURE: I performed a digital exam at the start of the procedure. I was able to pass through the anus with ease, but about 2-3 cm into the anus, there was a lot of scarring. I was able to pass my finger through this and break up some of the scar tissue, but this lead to some bleeding. I was able to pass my finger completely in which would total about 5-6 cm. We then inserted the Olympus anoscope. There was a lot of inflammatory tissue present on the distal aspect of the rectum into the anus. 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 There was some blood present from the digital rectal exam. We irrigated out this blood and eventually we were able to pass the scope up about to 10 cm where there was some stenosis probably from previous surgical site. We were able to traverse this stenotic tissue with the scope and passed the scope all the way to the end of the rectal stump at about 25 cm. This was in the most proximal portion of the rectum and colon was normal in appearance with some nonbilious stool present within it. As we pulled the scope back, we could see that the inflammation started about 10 cm from the anus where there was some stenosis of the tissue. We took some biopsies of this tissue. I did not see any masses or lesions. I do not see any evidence that made me think that there was a recurrence of cancer. Two separate cold biopsies were taken of the inflamed rectal tissue. We then irrigated out one last time and removed the scope and insufflation. I then performed vaginal exam under anesthesia. The posterior wall of the vagina was inflamed and appeared to be thin, but I did not see any evidence of a fistula present. There was no fluid present within the vaginal cuff as I did some vigorous irrigation of the rectum during the procedure. I do not see any evidence of a fistula present and all of the tissue appeared to be healing nicely, other than the inflammation that was present on the most posterior and distal aspect of the vaginal wall. At this point, we concluded the operation. COMPLICATIONS: None. CONDITION: Stable. ANESTHESIA: TIVA. BLOOD LOSS: Minimal. OPERATIVE REPORT [id number] DERRELL LOMBARDO TRANSINT:[id number] Voice Confirmation ID: [id number] DOCUMENT ID: [id number] PABLO HEADLEY MD at 1134 CC: NICHOLAS ESPINOZA MD, Payton SHAFER DAVID [id number] DICTATION DATE: 10/01/19 0832 DIRECTOR WEB: 10/01/19 1207 [facility] 10/01/19 [id number] [place] [address]
== END 2019-10-01 09:28 | disposition home or self-care (01) ==
LOC: D.OPS 05:37
PROVIDERS: Anesthesiology; ATTEND Surgery
DX: N82.3 Fistula of vagina to large intestine (principal); C20 Malignant neoplasm of rectum; Z93.3 Colostomy status

== ENCOUNTER 2020-06-15 08:52 | Inpatient (IN) | payer OTHER ==
[~2020-06-15] VITALS: Ht 167.6 cm; Wt 68.0 kg
[2020-06-15 16:45] LABS: BASOPHILS 0.3 % (0-2); EOSINOPHILS 1.1 % (0-7); HEMATOCRIT 39.3 % (36.0-48.0); HEMOGLOBIN 12.6 g/dL (12-16); IMMATURE GRANULOCYTES 0.2 % (0-5); MCH 27.4 pg (26.0-34.0); MCHC 32.1 g/dL (31.0-37.0); MCV 85.4 fL (80.0-100.0); MEAN PLATELET VOLUME 9.7 fL (7.4-10.4); MONOCYTES 10.1 % (2-11); NEUTROPHILS 68.3 % (40-80); PLATELET COUNT 220 10x3/uL (130-400); RDW 14.1 % (11.5-14.5); WBC 6.7 10x3/uL (4.8-10.8)
[2020-06-15 17:03] LABS: CALC OSMOLALITY 273 mosm/kg (275-300); CALCIUM 8.9 mg/dL (8.5-10.1); CARBON DIOXIDE 26.7 mmol/L (21.0-32.0); CHLORIDE - SERUM 103 mmol/L (98-107); CREATININE - SERUM 0.7 mg/dL (0.6-1.3); GLUCOSE 138 mg/dL (74-106); POTASSIUM - SERUM 3.5 mmol/L (3.5-5.1); SODIUM 136 mmol/L (136-145); UREA NITROGEN 12 mg/dL (7-18); eGFR NON AFRICAN AMERICAN 90 mL/min (90-120)
[2020-06-15 17:08] LABS: INR 0.91 (0.85-1.17); PROTIME 12.3 SECONDS (11.6-15.0)
[2020-06-16 09:47] VITALS: BP 123/78; BMI 24.2
--- NOTE | 2020-06-16 18:34 | NUR ---
X-RAY TAKEN AT END OF CASE FOR INSTRUMENT COUNT, DONE AND DR HEADLEY READ AND X-RAY WAS CLEAR, BRENDARLEY.
[2020-06-16 18:38] VITALS: BP 127/58
[2020-06-16 18:42] VITALS: BP 127/58; BMI 24.2
[2020-06-16 18:46] VITALS: BP 115/60
--- NOTE | 2020-06-16 18:46 | NUR ---
PATIENT ADMITTED TO ROOM 2203. ADMISSION COMPLETE. VITALS STABLE. WILL CONTINUE TO MONITOR.
--- NOTE | 2020-06-16 19:53 | NUR ---
ALERT AND ORENTED ABLE TO VOICE NEEDS AND WANTS TO STAFF. ON ROOM AIR. IV TO LEFT CHEST PORT WITH NS PER ORDERS. FOLLY CATH IN PLACE AND PATEN. NO S/S OF DISTRESS AT THIS TIME.
[2020-06-16 21:26] VITALS: BP 116/59
[2020-06-17] VITALS: BP 118/52
[2020-06-17 04:00] VITALS: BP 107/52
[2020-06-17 04:42] LABS: BASOPHILS 0 % (0-2); EOSINOPHILS 0 % (0-7); HEMATOCRIT 33.8 % (36.0-48.0); HEMOGLOBIN 10.7 g/dL (12-16); IMMATURE GRANULOCYTES 0.3 % (0-5); LYMPHOCYTES 5.9 % (15-50); MCH 26.9 pg (26.0-34.0); MCHC 31.7 g/dL (31.0-37.0); MCV 84.9 fL (80.0-100.0); MEAN PLATELET VOLUME 9.5 fL (7.4-10.4); MONOCYTES 6.4 % (2-11); NEUTROPHILS 87.4 % (40-80); PLATELET COUNT 193 10x3/uL (130-400); RBC 3.98 10x6/uL (4.00-5.40); RDW 14.1 % (11.5-14.5)
[2020-06-17 04:51] LABS: WBC 10.9 10x3/uL (4.8-10.8)
[2020-06-17 04:58] LABS: ANION GAP 12.7 mmol/L (8-16); CALCIUM 8.2 mg/dL (8.5-10.1); CARBON DIOXIDE 25.9 mmol/L (21.0-32.0); POTASSIUM - SERUM 3.6 mmol/L (3.5-5.1)
[2020-06-17 05:10] LABS: CREATININE - SERUM 0.9 mg/dL (0.6-1.3)
--- NOTE | 2020-06-17 07:47 | NUR ---
ALERT AND ORIENTED. LUNGS CLEAR BILATERALLY. HEART SOUNDS S1 AND S2 HEARD IN ALL [place]. BOWEL SOUNDS ACTIVE X 4. LEFT CHEST PORT PATENT WITHOUT REDNESS. DENIES NEEDS. BED LOW. CALL LAURENT AND PERSONAL ITEMS IN REACH. WILL CONTINUE TO MONITOR.
[2020-06-17 08:53] VITALS: BP 108/56
--- NOTE | 2020-06-17 09:30 | NUR ---
BLANCO REMOVED PER ORDER.
--- NOTE | 2020-06-17 09:45 | NUR ---
CVL DRSG CHANGED WITH STERILE PROCEDURE PER PROTOCOL.
--- NOTE | 2020-06-17 10:30 | NUR ---
LARGE VOID NOTED.
[2020-06-17 12:01] VITALS: BP 126/54
--- NOTE | 2020-06-17 14:11 | NUR ---
RESTING IN BED. DENIES NEEDS. WILL CONTINUE TO MONITOR.
[2020-06-17 16:23] VITALS: BP 120/50
--- NOTE | 2020-06-17 16:34 | NUR ---
LA STERLING MADE AWARE THAT PATIENT NAUSEAS AND NO BM IN OSTOMY BAG SINCE YESTERDAY. ABD DISTENDED. BS HYPOACTIVE X 4. STATES ORDER KUB.
--- NOTE | 2020-06-17 19:47 | NUR ---
alert and orented able to voice needs to staff. up walking. iv to left chest port. with ns at 100ml/hr. water and call light in reach.
[2020-06-17 20:00] VITALS: BP 130/67
[2020-06-18 04:00] VITALS: BP 133/62
--- NOTE | 2020-06-18 07:20 | NUR ---
PT IS RESTING IN BED WITH EYES OPEN. RESPIRATIONS ARE EVEN AND UNLABORED. PT IS AAO X 4 AND ANSWERS ALL QUESTIONS APPROPRIATELY. PT BS ARE FAINT AND HYPOACTIVE X 4. ABDOMEN IS DISTENDED AND TENDER UPON PALPATION X 4 QUADRANTS. LAP SITES X 2 NOTED TO ABDOMEN. LLQ COLOSTOMY IN PLACE AND WITHOUT NOTED DRAINAGE TO BAG. PT C/O "GAS" PAINS. WILL ADDRESS. SEE EMAR. LEFT CHEST PORT INPLACE AND INFUSING WITHOUT DIFFICULTY AND PER ORDER. DRESSING TO PORT IS CDI. PT DENIES PRESENCE OF DYSPNEA/DIZZINESS. PT AMBULATES WITHOUT DIFFICULTY AND AMBULATES AROUND ROOM. BED IS IN THE LOWEST POSITION. CALL LIGHT AND BEDSIDE TABLE ARE WITHIN REACH. SIDE RAILS X 2. PT DENIES FURTHER NEEDS. WILL CONT TO MONITOR.
[2020-06-18 09:22] VITALS: BP 135/69
[2020-06-18 10:30] LABS: BASOPHILS 0.1 % (0-2); EOSINOPHILS 0.1 % (0-7); HEMATOCRIT 33.3 % (36.0-48.0); HEMOGLOBIN 10.4 g/dL (12-16); IMMATURE GRANULOCYTES 0.2 % (0-5); MCH 26.9 pg (26.0-34.0); MCHC 31.2 g/dL (31.0-37.0); MCV 86.3 fL (80.0-100.0); MEAN PLATELET VOLUME 9.8 fL (7.4-10.4); NEUTROPHILS 85.6 % (40-80); PLATELET COUNT 201 10x3/uL (130-400); RBC 3.86 10x6/uL (4.00-5.40); RDW 14.5 % (11.5-14.5)
[2020-06-18 10:43] LABS: CALC OSMOLALITY 270 mosm/kg (275-300); CALCIUM 8.6 mg/dL (8.5-10.1); CARBON DIOXIDE 28.7 mmol/L (21.0-32.0); CHLORIDE - SERUM 102 mmol/L (98-107); CREATININE - SERUM 0.7 mg/dL (0.6-1.3); GLUCOSE 123 mg/dL (74-106); POTASSIUM - SERUM 3.4 mmol/L (3.5-5.1); SODIUM 136 mmol/L (136-145); eGFR NON AFRICAN AMERICAN 90 mL/min (90-120)
[2020-06-18 10:48] LABS: UREA NITROGEN 8 mg/dL (7-18)
[2020-06-18 13:19] VITALS: BP 138/68
--- NOTE | 2020-06-18 13:46 | OP ---
PATIENT NAME: DERRELL LOMBARDO MEDICAL RECORD: [id number] :60 LOCATION:D.MS [id number] ADMISSION DATE:06/18/20 SURGEON: PABLO HEADLEY MD DATE OF OPERATION: 06/16/2020 PREOPERATIVE DIAGNOSES: 1. Rectal stenosis. 2. History of rectal cancer status post low anterior resection and radiation treatment. 3. Colostomy in situ. POSTOPERATIVE DIAGNOSES: 1. Rectal stenosis. 2. History of rectal cancer status post low anterior resection and radiation treatment. 3. Colostomy in situ. PROCEDURE: 1. Exploratory laparoscopy, hand-assisted. 2. Repair of vaginal cuff injury. SURGEON: Pablo Headley MD CO-SURGEON: Dr. Corbin Izquierdo. REPORT OF PROCEDURE: The patient's abdomen was prepped and draped in sterile fashion. A Veress needle was inserted in the left upper quadrant and the abdomen was insufflated. A 5-mm Visiport trocar was inserted in the right upper quadrant laterally and the abdomen. I could see the Veress needle and there was no sign of any injury to bowel or surrounding structures. A 5-mm trocar was then placed in the right lower quadrant and using these, I was able to take down a significant amount of adhesions of the omentum that was present to the anterior abdominal wall. A tedious dissection occurred for approximately 30 minutes as we peeled this down, eventually getting close to the patient's pelvis. At this point, there appeared to be more inflammatory changes in the pelvis. I elected just put a hand port in. A low midline incision was performed and using electrocautery, we came through the subcutaneous tissues and fascia and enter the abdominal cavity. Once inside, the GelPort was inserted. With the Gelport in place, I was able to manipulate the tissues and take down any final adhesions that were necessary in order to first enter the patient's pelvic inlet. Once in the pelvic inlet, I could see the rectal stump. The rectal stump appeared to be normal in caliber with no inflammatory changes. I went ahead and eviscerated this through the incision, through the wound protector and opened up the distal end of the rectal stump. At this point, I went through the anus and rectum and was able to manipulate the tissues and again there was a long segment of stenotic tissue present and I was able to pass my index finger through with some resistance. I eventually was able to pass an NG tube through the anus and rectum out through the opening of the proximal bowel. I tied a suture to this nasogastric tube and tied the other end to a 25 EEA stapler anvil. We attempted to pull this anvil through the tissue to the rectum and I was eventually able to pull it down deep into the pelvis in the distal rectum, but the area of stenosis was just too long to allow us to perform the EEA stapler that we had originally planned. At this point, I discontinued this portion of the procedure. I was able to reach down and pull out the EEA anvil from the rectum. The rectal tissue was closed off with a 30 blue load TA OPERATIVE REPORT [id number] DERRELL LOMBARDO stapler. We placed this back into the abdominal cavity. I then attempted to dilate the rectum using anal dilators. I was never able to get these to pass very well and at one point I accidentally passed in the vagina and there was a small injury to the distal vaginal cuff. Dr. Izquierdo was called then and he evaluated the area. I could see that this was not an intraperitoneal injury. He oversewed the vaginal cuff injury. Once he had this completed, then we irrigated out the abdomen thoroughly with normal saline and assured there was no sign of any active bleeding, which there was none. The fascia was closed with a running #1 loop PDS times 2. The subcutaneous tissues were reapproximated with interrupted 3-0 Vicryls and the skin incisions were all closed with subcutaneous 5-0 Monocryl. COMPLICATIONS: Vaginal cuff injury. CONDITION: Stable. ANESTHESIA: General endotracheal. BLOOD LOSS: 100 mL. TRANSINT:[id number] Voice Confirmation ID: [id number] DOCUMENT ID: [id number] PABLO HEADLEY MD at 1346 CC: NICHOLAS ESPINOZA MD, SHAWN SHAFER and SAM BOYER [id number] DICTATION DATE: 06/16/20 1739 SUPERVISOR NEWSPAPER DELIVERIES: 06/17/20 0151 [facility] IN [facility] [address] [id number]
--- OUTSIDE RECORDS SUMMARY | 2020-06-18 16:28 | XMS Report ---
Demographics + + + | Address | [address] | | | [place], [place] | | | [address] | + + + | Home Phone | | + + + | Preferred Language | Unknown | + + + | Marital Status | | + + + | Orthodoxy Affiliation | Unknown | + + + | Race | White | + + + | Ethnic Group | Not or | + + + Author + + + | Author | [facility], | | | [facility] | | | [place] | + + + | Organization | [facility], | | | [facility] | | | [place] | + + + | Address | [address] | | | [place] [address] | | | | + + + | Phone | [phone] | + + + Care Team Providers + +------+ + | Care Architect Marine Name | Role | Phone | + +------+ + 2 | Unavailable | + +------+ + 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 Patient Targets + + + + | Encounter Date | Instructions | Goals | | | | | | | | | + + + + | 06/17/2020 | | | | | | | | | | | + + + + Plan of Treatment + + + + + + + | Reminders | | Order | Submit | Provider | Details | | | | Date | Date | | | | | | | | | | | | | | | | | | | | | | | | | | | | | | | + + + + + + + | | None | | | | | | | recorded. | | | | | | | | | | | | | | | | | | | | | | | | | | | Appointme | | | | | | | nts | | | | | | | | | | | | | | | | | | | | | | | | | | | | | | | | | | | | | | | | | | | | | | | | | | | | | | | | | | | | | | + + + + + + + | | None | | | | | | | recorded. | | | | | | | | | | | | | | | | | | | | Lab | | | | | | | | | | | | | | | | | | | | | | | | | | | | | | | | | | | | | | | | | | | | | | | | | | | | | | | | | | | | | | + + + + + + + | | | | | | | | | | | | [facility] | | | | | 0 | | Park | | | | | | 0 | Medical | | | | | | | Center, | | | Referral | general | | | 130 | | | | surgery | | | Medical | | | | referral | | | [address], Hot | | | | | | | [place], | | | | | | | [place], | | | | | | | [id number], Ph | | | | | | | (501) | | | | | | | 321-1000 | | | | | | | | | | | | | | | | | | | | | | | | | | | | | | + + + + + + + | | None | | | | | | | recorded. | | | | | | | | | | | | | | | | | | | | | | | | | | | Procedure | | | | | | | s | | | | | | | | | | | | | | | | | | | | | | | | | | | | | | | | | | | | | | | | | | | | | | | | | | | | | | | | | | | | | | + + + + + + + | | None | | | | | | | recorded. | | | | | | | | | | | | | | | | | | | | | | | | | | | Surgeries | | | | | | | | | | | | | | | | | | | | | | | | | | | | | | | | | | | | | | | | | | | | | | | | | | | | | | | | | | | | | | + + + + + + + | | None | | | | | | | recorded. | | | | | | | | | | | | | | | | | | | | | | | | | | | Imaging | | | | | | | | | | | | | | | | | | | | | | | | | | | | | | | | | | | | | | | | | | | | | | | | | | | | | | | | | | | | | | + + + + + + + Results +--------+--------+--------+--------+--------+--------+--------+--------+ | Date | Name | Descri | Value | Unit | Range | Abnorm | Provid | | | | ption | | | | al | er | | | | | | | | Flag | Detail | | | | | | | | | | | | | | | | | | | | | | | | | | | | | | | | | | | | | | | | | | | | | | | | | | | | | | | +--------+--------+--------+--------+--------+--------+--------+--------+ | 10/07/ | CBC w/ | | 0 | % | 0-2 | normal | | | 2020 | auto | | | | | | | | | diff | | | | | | | | | | | | | | | | | | | | | | | | | | | | | | | | | | | | | | | | | | | | | | basoph | | | | | Nation | | | | il % | | | | | al | | | | | | | | | Park | | | | | | | | | Medica | | | | | | | | | l | | | | | | | | | Center | | | | | | | | | | | | | | | | | | | | | | | | | | | | | | | | | | | | | | | | | | | | | | | | | | | | | | | | | | | | | | | | | | | | | | | | | | | | | | | | | | | | | | | | | | | | | | | | | | | | | | | | | | | | | | | | | | | | | | | | | | | | | | | | | | | | | | | 1910 | | | | | | | | | [address] | | | [address], | | | | | | | | | Hot | | | | | | | | | Spring | | | | | | | | | s, [place], | | | | | | | | | | | | | | | | | | [address]- | | | | | | | | | [address], | | | | | | | | | Ph | | | | | | | | | (501) | | | | | | | | | 321[address]10 | | | | | | | | | 00 | | | | | | | | | | | | | | | | | | | | | | | | | | | | | | | | | | | | | | | | | | | | | | | | | | | | | | | | | | | | | | | | | | | | | | | | | | | | | | | | | | | | | | | | | | | | | | | | | | | | +--------+--------+--------+--------+--------+--------+--------+--------+ | 10/07/ | CBC w/ | | 0 | % | 0-7 | normal | | | 2020 | auto | | | | | | | | | diff | | | | | | | | | | | | | | | | | | | | | | | | | | | | | | | | | | | | | | | | | | | | | | eosino | | | | | Nation | | | | phils | | | | | al | | | | | | | | | Park | | | | | | | | | Medica | | | | | | | | | l | | | | | | | | | Center | | | | | | | | | | | | | | | | | | | | | | | | | | | | | | | | | | | | | | | | | | | | | | | | | | | | | | | | | | | | | | | | | | | | | | | | | | | | | | | | | | | | | | | | | | | | | | | | | | | | | | | | | | | | | | | | | | | | | | | | | | | | | | | | | | | | | | | 1910 | | | | | | | | | [address] | | | | | | | | | [address], | | | | | | | | | Hot | | | | | | | | | Spring | | | | | | | | | s, [place], | | | | | | | | | | | | | | | | | | [address]- | | | | | | | | | [address], | | | | | | | | | Ph | | | | | | | | | (501) | | | | | | | | | 321[address]10 | | | | | | | | | 00 | | | | | | | | | | | | | | | | | | | | | | | | | | | | | | | | | | | | | | | | | | | | | | | | | | | | | | | | | | | | | | | | | | | | | | | | | | | | | | | | | | | | | | | | | | | | | | | | | | | | +--------+--------+--------+--------+--------+--------+--------+--------+ | 10/07/ | CBC w/ | | 33.8 | % | 36.0-4 | low | | | 2020 | auto | | | | 8.0 | | | | | diff | | | | | | | | | | | | | | | | | | | | | | | | | | | | | | | | | | | | | | | | | | | | | | HCT | | | | | Nation | | | | vfr | | | | | al | | | | bld | | | | | Park | | | | auto | | | | | Medica | | | | | | | | | l | | | | | | | | | Center | | | | | | | | | | | | | | | | | | | | | | | | | | | | | | | | | | | | | | | | | | | | | | | | | | | | | | | | | | | | | | | | | | | | | | | | | | | | | | | | | | | | | | | | | | | | | | | | | | | | | | | | | | | | | | | | | | | | | | | | | | | | | | | | | | | | | | | 1910 | | | | | | | | | [address] | | | [address] | [address], | | | | | | | | | Hot | | | | | | | | | Spring | | | | | | | | | s, [place], | | | | | | | | | | | | | | | | | | [address]- | | | | | | | | | [address], | | | | | | | | | Ph | | | | | | | | | (501) | | | | | | | | | 321-10 | | | | | | | | | 00 | | | | | | | | | | | | | | | | | | | | | | | | | | | | | | | | | | | | | | | | | | | | | | | | | | | | | | | | | | | | | | | | | | | | | | | | | | | | | | | | | | | | | | | | | | | | | | | | | | | | +--------+--------+--------+--------+--------+--------+--------+--------+ | 10/07/ | CBC w/ | | 10.7 | g/dL | 12-16 | low | | | 2020 | auto | | | | | | | | | diff | | | | | | | | | | | | | | | | | | | | | | | | | | | | | | | | | | | | | | | | | | | | | | hemogl | | | | | Nation | | | | obin | | | | | al | | | | | | | | | Park | | | | | | | | | Medica | | | | | | | | | l | | | | | | | | | Center | | | | | | | | | | | | | | | | | | | | | | | | | | | | | | | | | | | | | | | | | | | | | | | | | | | | | | | | | | | | | | | | | | | | | | | | | | | | | | | | | | | | | | | | | | | | | | | | | | | | | | | | | | | | | | | | | | | | | | | | | | | | | | | | | | | | | | | 1910 | | | | | | | | | [address] | | | | | | | | [address], | | | | | | | | | Hot | | | | | | | | | Spring | | | | | | | | | s, [place], | | | | | | | | | | | | | | | | | | [address]- | | | | | | | | | [address], | | | | | | | | | Ph | | | | | | | | | (501) | | | | | | | | | 321[address]10 | | | | | | | | | 00 | | | | | | | | | | | | | | | | | | | | | | | | | | | | | | | | | | | | | | | | | | | | | | | | | | | | | | | | | | | | | | | | | | | | | | | | | | | | | | | | | | | | | | | | | | | | | | | | | | | | +--------+--------+--------+--------+--------+--------+--------+--------+ | 10/07/ | CBC w/ | | 0.3 | % | 0-5 | normal | | | 2020 | auto | | 0.3 | | | | | | | diff | | | | | | | | | | | | | | | | | | | | | | | | | | | | | | | | | | | | | | | | | | | | | | imm | | | | | Nation | | | | granul | | | | | al | | | | ocytes | | | | | Park | | | | bld | | | | | Medica | | | | ql | | | | | l | | | | auto | | | | | Center | | | | | | | | | | | | | | | | | | | | | | | | | | | | | | | | | | | | | | | | | | | | | | | | | | | | | | | | | | | | | | | | | | | | | | | | | | | | | | | | | | | | | | | | | | | | | | | | | | | | | | | | | | | | | | | | | | | | | | | | | | | | | | | | | | | | | | | [address] | | | | | | | | | [address] | | | | | | | | | Hot | | | | | | | | | Spring | | | | | | | | | s, [place], | | | | | | | | | | | | | | | | | | [address]- | | | | | | | | | [address], | | | | | | | | | Ph | | | | | | | | | (501) | | | | | | | | | 321[address]10 | | | | | | | | | 00 | | | | | | | | | | | | | | | | | | | | | | | | | | | | | | | | | | | | | | | | | | | | | | | | | | | | | | | | | | | | | | | | | | | | | | | | | | | | | | | | | | | | | | | | | | | | | | | | | | | | +--------+--------+--------+--------+--------+--------+--------+--------+ | 10/07/ | CBC w/ | | 0.64 | 10x3/u | 1.18-3 | low | | | 2020 | auto | | | L | .74 | | | | | diff | | | | | | | | | | | | | | | | | | | | | | | | | | | | | | | | | | | | | | | | | | | | | | absolu | | | | | Nation | | | | te | | | | | al | | | | lympho | | | | | Park | | | | cyte | | | | | Medica | | | | count | | | | | l | | | | | | | | | Center | | | | | | | | | | | | | | | | | | | | | | | | | | | | | | | | | | | | | | | | | | | | | | | | | | | | | | | | | | | | | | | | | | | | | | | | | | | | | | | | | | | | | | | | | | | | | | | | | | | | | | | | | | | | | | | | | | | | | | | | | | | | | | | | | | | | | | | [address] | | | | | | | | | [address] | | [address] | | | | | | | | | Hot | | | | | | | | | Spring | | | | | | | | | s, [place], | | | | | | | | | | | | | | | | | | [address]- | | | | | | | | | [address], | | | | | | | | | Ph | | | | | | | | | (501) | | | | | | | | | 321-10 | | | | | | | | | 00 | | | | | | | | | | | | | | | | | | | | | | | | | | | | | | | | | | | | | | | | | | | | | | | | | | | | | | | | | | | | | | | | | | | | | | | | | | | | | | | | | | | | | | | | | | | | | | | | | | | | +--------+--------+--------+--------+--------+--------+--------+--------+ | 10/07/ | CBC w/ | | 5.9 | % | 15-50 | low | | | 2020 | auto | | | | | | | | | diff | | | | | | | | | | | | | | | | | | | | | | | | | | | | | | | | | | | | | | | | | | | | | | lympho | | | | | Nation | | | | cytes | | | | | al | | | | | | | | | Park | | | | | | | | | Medica | | | | | | | | | l | | | | | | | | | Center | | | | | | | | | | | | | | | | | | | | | | | | | | | | | | | | | | | | | | | | | | | | | | | | | | | | | | | | | | | | | | | | | | | | | | | | | | | | | | | | | | | | | | | | | | | | | | | | | | | | | | | | | | | | | | | | | | | | | | | | | | | | | | | | | | | | | | | 1910 | | | | | | | | | [address] | | | | [address] | [address], | | | | | | | | | Hot | | | | | | | | | Spring | | | | | | | | | s, [place], | | | | | | | | | | | | | | | | | | [address]- | | | | | | | | | [address], | | | | | | | | | Ph | | | | | | | | | (501) | | | | | | | | | 321[address]10 | | | | | | | | | 00 | | | | | | | | | | | | | | | | | | | | | | | | | | | | | | | | | | | | | | | | | | | | | | | | | | | | | | | | | | | | | | | | | | | | | | | | | | | | | | | | | | | | | | | | | | | | | | | | | | | | +--------+--------+--------+--------+--------+--------+--------+--------+ | 10/07/ | CBC w/ | | 26.9 | pg | 26.0-3 | normal | | | 2020 | auto | | | | 4.0 | | | | | diff | | | | | | | | | | | | | | | | | | | | | | | | | | | | | | | | | | | | | | | | | | | | | | [facility]CH | | | | | Nation | | | | | | | | | al | | | | | | | | | Park | | | | | | | | | Medica | | | | | | | | | l | | | | | | | | | Center | | | | | | | | | | | | | | | | | | | | | | | | | | | | | | | | | | | | | | | | | | | | | | | | | | | | | | | | | | | | | | | | | | | | | | | | | | | | | | | | | | | | | | | | | | | | | | | | | | | | | | | | | | | | | | | | | | | | | | | | | | | | | | | | | | | | | | | [address] | | | | | | | | | [address] | | | | | | | | | Hot | | | | | | | | | Spring | | | | | | | | | s, [place], | | | | | | | | | | | | | | | | | | [address]- | | | | | | | | | [address], | | | | | | | | | Ph | | | | | | | | | (501) | | | | | | | | | 321[address]10 | | | | | | | | | 00 | | | | | | | | | | | | | | | | | | | | | | | | | | | | | | | | | | | | | | | | | | | | | | | | | | | | | | | | | | | | | | | | | | | | | | | | | | | | | | | | | | | | | | | | | | | | | | | | | | | | +--------+--------+--------+--------+--------+--------+--------+--------+ | 10/07/ | CBC w/ | | 31.7 | g/dL | 31.0-3 | normal | | | 2020 | auto | | | | 7.0 | | | | | diff | | | | | | | | | | | | | | | | | | | | | | | | | | | | | | | | | | | | | | | | | | | | | | [facility] | | | | | Nation | | | | RBC | | | | | al | | | | auto-m | | | | | Park | | | | cnc | | | | | Medica | | | | | | | | | l | | | | | | | | | Center | | | | | | | | | | | | | | | | | | | | | | | | | | | | | | | | | | | | | | | | | | | | | | | | | | | | | | | | | | | | | | | | | | | | | | | | | | | | | | | | | | | | | | | | | | | | | | | | | | | | | | | | | | | | | | | | | | | | | | | | | | | | | | | | | | | | | | | [address] | | | | | | | | | [address] | | | [address] | | | | | | | | | Hot | | | | | | | | | Spring | | | | | | | | | s, [place], | | | | | | | | | | | | | | | | | | [address]- | | | | | | | | | [address], | | | | | | | | | Ph | | | | | | | | | (501) | | | | | | | | | 321[address]10 | | | | | | | | | 00 | | | | | | | | | | | | | | | | | | | | | | | | | | | | | | | | | | | | | | | | | | | | | | | | | | | | | | | | | | | | | | | | | | | | | | | | | | | | | | | | | | | | | | | | | | | | | | | | | | | | +--------+--------+--------+--------+--------+--------+--------+--------+ | 10/07/ | CBC w/ | | 84.9 | fL | 80.0-1 | normal | | | 2020 | auto | | | | 00.0 | | | | | diff | | | | | | | | | | | | | | | | | | | | | | | | | | | | | | | | | | | | | | | | | | | | | | MCV | | | | | Nation | | | | | | | | | al | | | | | | | | | Park | | | | | | | | | Medica | | | | | | | | | l | | | | | | | | | Center | | | | | | | | | | | | | | | | | | | | | | | | | | | | | | | | | | | | | | | | | | | | | | | | | | | | | | | | | | | | | | | | | | | | | | | | | | | | | | | | | | | | | | | | | | | | | | | | | | | | | | | | | | | | | | | | | | | | | | | | | | | | | | | | | | | | | | | 1910 | | | | | | | | | [address] | | | | | | [address] | [address], | | | | | | | | | Hot | | | | | | | | | Spring | | | | | | | | | s, [place], | | | | | | | | | | | | | | | | | | [address]- | | | | | | | | | [address], | | | | | | | | | Ph | | | | | | | | | (501) | | | | | | | | | 321-10 | | | | | | | | | 00 | | | | | | | | | | | | | | | | | | | | | | | | | | | | | | | | | | | | | | | | | | | | | | | | | | | | | | | | | | | | | | | | | | | | | | | | | | | | | | | | | | | | | | | | | | | | | | | | | | | | +--------+--------+--------+--------+--------+--------+--------+--------+ | 10/07/ | CBC w/ | | 6.4 | % | 2-11 | normal | | | 2020 | auto | | | | | | | | | diff | | | | | | | | | | | | | | | | | | | | | | | | | | | | | | | | | | | | | | | | | | | | | | monocy | | | | | Nation | | | | satn | | | | | al | | | | | | | | | Park | | | | | | | | | Medica | | | | | | | | | l | | | | | | | | | Center | | | | | | | | | | | | | | | | | | | | | | | | | | | | | | | | | | | | | | | | | | | | | | | | | | | | | | | | | | | | | | | | | | | | | | | | | | | | | | | | | | | | | | | | | | | | | | | | | | | | | | | | | | | | | | | | | | | | | | | | | | | | | | | | | | | | | | | [address] | | | | | | | | | [address], | | | | | | | | | Hot | | | | | | | | | Spring | | | | | | | | | s, [place], | | | | | | | | | | | | | | | | | | [address]- | | | | | | | | | [address], | | | | | | | | | Ph | | | | | | | | | (501) | | | | | | | | | 321[address]10 | | | | | | | | | 00 | | | | | | | | | | | | | | | | | | | | | | | | | | | | | | | | | | | | | | | | | | | | | | | | | | | | | | | | | | | | | | | | | | | | | | | | | | | | | | | | | | | | | | | | | | | | | | | | | | | | +--------+--------+--------+--------+--------+--------+--------+--------+ | 10/07/ | CBC w/ | | 9.5 | fL | 7.4-10 | normal | | | 2020 | auto | | | | .4 | | | | | diff | | | | | | | | | | | | | | | | | | | | | | | | | | | | | | | | | | | | | | | | | | | | | | mean | | | | | Nation | | | | platel | | | | | al | | | | et | | | | | Park | | | | volume | | | | | Medica | | | | | | | | | l | | | | | | | | | Center | | | | | | | | | | | | | | | | | | | | | | | | | | | | | | | | | | | | | | | | | | | | | | | | | | | | | | | | | | | | | | | | | | | | | | | | | | | | | | | | | | | | | | | | | | | | | | | | | | | | | | | | | | | | | | | | | | | | | | | | | | | | | | | | | | | | | | | [address] | | | | | | | | | [address] | | | | | | | | | Hot | | | | | | | | | Spring | | | | | | | | | s, [place], | | | | | | | | | | | | | | | | | | [address]- | | | | | | | | | [address], | | | | | | | | | Ph | | | | | | | | | (501) | | | | | | | | | 321[address]10 | | | | | | | | | 00 | | | | | | | | | | | | | | | | | | | | | | | | | | | | | | | | | | | | | | | | | | | | | | | | | | | | | | | | | | | | | | | | | | | | | | | | | | | | | | | | | | | | | | | | | | | | | | | | | | | | +--------+--------+--------+--------+--------+--------+--------+--------+ | 10/07/ | CBC w/ | | 9.53 | 10x3/u | 1.56-6 | high | | | 2020 | auto | | | L | .13 | | | | | diff | | | | | | | | | | | | | | | | | | | | | | | | | | | | | | | | | | | | | | | | | | | | | | neutro | | | | | Nation | | | | ap | | | | | al | | | | abs# | | | | | Park | | | | | | | | | Medica | | | | | | | | | l | | | | | | | | | Center | | | | | | | | | | | | | | | | | | | | | | | | | | | | | | | | | | | | | | | | | | | | | | | | | | | | | | | | | | | | | | | | | | | | | | | | | | | | | | | | | | | | | | | | | | | | | | | | | | | | | | | | | | | | | | | | | | | | | | | | | | | | | | | | | | | | | | | 1910 | | | | | | | | | [address] | | | | | | | | | [address], | | | | | | | | | Hot | | | | | | | | | Spring | | | | | | | | | s, [place], | | | | | | | | | | | | | | | | | | [address]- | | | | | | | | | [address]752, | | | | | | | | | Ph | | | | | | | | | ([phone]) | | | | | | | | | 321-10 | | | | | | | | | 00 | | | | | | | | | | | | | | | | | | | | | | | | | | | | | | | | | | | | | | | | | | | | | | | | | | | | | | | | | | | | | | | | | | | | | | | | | | | | | | | | | | | | | | | | | | | | | | | | | | | | +--------+--------+--------+--------+--------+--------+--------+--------+ | 10/07/ | CBC w/ | | 87.4 | % | 40-80 | high | | | 2020 | auto | | | | | | | | | diff | | | | | | | | | | | | | | | | | | | | | | | | | | | | | | | | | | | | | | | | | | | | | | neutro | | | | | Nation | | | | phils | | | | | al | | | | nfr | | | | | Park | | | | bld | | | | | [facility] | | | | auto | | | | | l | | | | | | | | | Center | | | | | | | | | | | | | | | | | | | | | | | | | | | | | | | | | | | | | | | | | | | | | | | | | | | | | | | | | | | | | | | | | | | | | | | | | | | | | | | | | | | | | | | | | | | | | | | | | | | | | | | | | | | | | | | | | | | | | | | | | | | | | | | | | | | | | | | 1910 | | | | | | | | | [address] | | | | | | | | | [address], | | | | | | | | | Hot | | | | | | | | | Spring | | | | | | | | | s, [place], | | | | | | | | | | | | | | | | | | [id number]- | | | | | | | | | 7752, | | | | | | | | | Ph | | | | | | | | | (501) | | | | | | | | | 321-10 | | | | | | | | | 00 | | | | | | | | | | | | | | | | | | | | | | | | | | | | | | | | | | | | | | | | | | | | | | | | | | | | | | | | | | | | | | | | | | | | | | | | | | | | | | | | | | | | | | | | | | | | | | | | | | | | +--------+--------+--------+--------+--------+--------+--------+--------+ | 10/07/ | CBC w/ | | 193 | 10x3/u | 130-40 | normal | | | 2020 | auto | | | L | 0 | | | | | diff | | | | | | | | | | | | | | | | | | | | | | | | | | | | | | | | | | | | | | | | | | | | | | platel | | | | | Nation | | | | et # | | | | | al | | | | bld | | | | | Park | | | | auto | | | | | [facility] | | | | | | | | | l | | | | | | | | | Center | | | | | | | | | | | | | | | | | | | | | | | | | | | | | | | | | | | | | | | | | | | | | | | | | | | | | | | | | | | | | | | | | | | | | | | | | | | | | | | | | | | | | | | | | | | | | | | | | | | | | | | | | | | | | | | | | | | | | | | | | | | | | | | | | | | | | | | [address] | | | | | | | | | [address] | | | | | | | [address], | | | | | | | | | Hot | | | | | | | | | Spring | | | | | | | | | s, [place], | | | | | | | | | | | | | | | | | | [id number]- | | | | | | | | | 7752, | | | | | | | | | Ph | | | | | | | | | (501) | | | | | | | | | 321-10 | | | | | | | | | 00 | | | | | | | | | | | | | | | | | | | | | | | | | | | | | | | | | | | | | | | | | | | | | | | | | | | | | | | | | | | | | | | | | | | | | | | | | | | | | | | | | | | | | | | | | | | | | | | | | | | | +--------+--------+--------+--------+--------+--------+--------+--------+ | 10/07/ | CBC w/ | | 3.98 | 10x6/u | 4.00-5 | low | | | 2020 | auto | | | L | .40 | | | | | diff | | | | | | | | | | | | | | | | | | | | | | | | | | | | | | | | | | | | | | | | | | | | | | RBC # | | | | | Nation | | | | bld | | | | | al | | | | auto | | | | | Park | | | | | | | | | [facility] | | | | | | | | | l | | | | | | | | | Center | | | | | | | | | | | | | | | | | | | | | | | | | | | | | | | | | | | | | | | | | | | | | | | | | | | | | | | | | | | | | | | | | | | | | | | | | | | | | | | | | | | | | | | | | | | | | | | | | | | | | | | | | | | | | | | | | | | | | | | | | | | | | | | | | | | | | | | [address] | | | | | | | | | [address] | | | | | | [address], | | | | | | | | | Hot | | | | | | | | | Spring | | | | | | | | | s, [place], | | | | | | | | | | | | | | | | | | [address]- | | | | | | | | | 7752, | | | | | | | | | Ph | | | | | | | | | (501) | | | | | | | | | 321-10 | | | | | | | | | 00 | | | | | | | | | | | | | | | | | | | | | | | | | | | | | | | | | | | | | | | | | | | | | | | | | | | | | | | | | | | | | | | | | | | | | | | | | | | | | | | | | | | | | | | | | | | | | | | | | | | | +--------+--------+--------+--------+--------+--------+--------+--------+ | 10/07/ | CBC w/ | | 14.1 | % | 11.5-1 | normal | | | 2020 | auto | | | | 4.5 | | | | | diff | | | | | | | | | | | | | | | | | | | | | | | | | | | | | | | | | | | | | | | | | | | | | | RDW | | | | | Nation | | | | RBC | | | | | al | | | | auto-R | | | | | Park | | | | TO | | | | | [facility] | | | | | | | | | l | | | | | | | | | Center | | | | | | | | | | | | | | | | | | | | | | | | | | | | | | | | | | | | | | | | | | | | | | | | | | | | | | | | | | | | | | | | | | | | | | | | | | | | | | | | | | | | | | | | | | | | | | | | | | | | | | | | | | | | | | | | | | | | | | | | | | | | | | | | | | | | | | | 1910 | | | | | | | | | [address] | | | | | | [address], | | | | | | | | | Hot | | | | | | | | | Spring | | | | | | | | | s, [place], | | | | | | | | | | | | | | | | | | [address]- | | | | | | | | | 7752, | | | | | | | | | Ph | | | | | | | | | (501) | | | | | | | | | 321-10 | | | | | | | | | 00 | | | | | | | | | | | | | | | | | | | | | | | | | | | | | | | | | | | | | | | | | | | | | | | | | | | | | | | | | | | | | | | | | | | | | | | | | | | | | | | | | | | | | | | | | | | | | | | | | | | | +--------+--------+--------+--------+--------+--------+--------+--------+ | 10/07/ | CBC w/ | | 10.9 | 10x3/u | 4.8-10 | high | | | 2020 | auto | | | L | .8 | | | | | diff | | | | | | | | | | | | | | | | | | | | | | | | | | | | | | | | | | | | | | | | | | | | | | WBC | | | | | Nation | | | | | | | | | al | | | | | | | | | Park | | | | | | | | | [facility] | | | | | | | | | l | | | | | | | | | Center | | | | | | | | | | | | | | | | | | | | | | | | | | | | | | | | | | | | | | | | | | | | | | | | | | | | | | | | | | | | | | | | | | | | | | | | | | | | | | | | | | | | | | | | | | | | | | | | | | | | | | | | | | | | | | | | | | | | | | | | | | | | | | | | | | | | | | | 1910 | | | | | | | | | [address] | | | | | | | | | [address], | | | | | | | | | Hot | | | | | | | | | Spring | | | | | | | | | s, [place], | | | | | | | | | | | | | | | | | | [address]- | | | | | | | | | [address]752, | | | | | | | | | Ph | | | | | | | | | (501) | | | | | | | | | 321[address]10 | | | | | | | | | 00 | | | | | | | | | | | | | | | | | | | | | | | | | | | | | | | | | | | | | | | | | | | | | | | | | | | | | | | | | | | | | | | | | | | | | | | | | | | | | | | | | | | | | | | | | | | | | | | | | | | | +--------+--------+--------+--------+--------+--------+--------+--------+ | 10/07/ | BMP, | | 12.70 | mmol/L | 8-16 | normal | | | 2020 | serum | | | | | | | | | or | | | | | | | | | plasma | | | | | | | | | | | | | | | | | | | | | | | | | | | | | | | | | | | | | anion | | | | | Nation | | | | gap | | | | | al | | | | serpl- | | | | | Park | | | | scnc | | | | | Medica | | | | | | | | | l | | | | | | | | | Center | | | | | | | | | | | | | | | | | | | | | | | | | | | | | | | | | | | | | | | | | | | | | | | | | | | | | | | | | | | | | | | | | | | | | | | | | | | | | | | | | | | | | | | | | | | | | | | | | | | | | | | | | | | | | | | | | | | | | | | | | | | | | | | | | | | | | | | 1910 | | | | | | | | | [address] | | | | | | | | | [address], | | | | | | | | | Hot | | | | | | | | | Spring | | | | | | | | | s, [place], | | | | | | | | | | | | | | | | | | [address]- | | | | | | | | | 7752, | | | | | | | | | Ph | | | | | | | | | (501) | | | | | | | | | 321-10 | | | | | | | | | 00 | | | | | | | | | | | | | | | | | | | | | | | | | | | | | | | | | | | | | | | | | | | | | | | | | | | | | | | | | | | | | | | | | | | | | | | | | | | | | | | | | | | | | | | | | | | | | | | | | | | | +--------+--------+--------+--------+--------+--------+--------+--------+ | 10/07/ | BMP, | | 13 | ratio | 10-20 | normal | | | 2020 | serum | | | | | | | | | or | | | | | | | | | plasma | | | | | | | | | | | | | | | | | | | | | | | | | | | | | | | | | | | | | BUN/cr | | | | | Nation | | | | e | | | | | al | | | | ratio | | | | | Park | | | | | | | | | Medica | | | | | | | | | l | | | | | | | | | Center | | | | | | | | | | | | | | | | | | | | | | | | | | | | | | | | | | | | | | | | | | | | | | | | | | | | | | | | | | | | | | | | | | | | | | | | | | | | | | | | | | | | | | | | | | | | | | | | | | | | | | | | | | | | | | | | | | | | | | | | | | | | | | | | | | | | | | | 1910 | | | | | | | | | [address] | | | | | | [address] | [address], | | | | | | | | | Hot | | | | | | | | | Spring | | | | | | | | | s, [place], | | | | | | | | | | | | | | | | | | [address]- | | | | | | | | | 7752, | | | | | | | | | Ph | | | | | | | | | (501) | | | | | | | | | 321-10 | | | | | | | | | 00 | | | | | | | | | | | | | | | | | | | | | | | | | | | | | | | | | | | | | | | | | | | | | | | | | | | | | | | | | | | | | | | | | | | | | | | | | | | | | | | | | | | | | | | | | | | | | | | | | | | | +--------+--------+--------+--------+--------+--------+--------+--------+ | 10/07/ | BMP, | | 12 | mg/dL | 7-18 | normal | | | 2020 | serum | | | | | | | | | or | | | | | | | | | plasma | | | | | | | | | | | | | | | | | | | | | | | | | | | | | | | | | | | | | BUN | | | | | Nation | | | | serpl- | | | | | al | | | | mcnc | | | | | Park | | | | | | | | | Medica | | | | | | | | | l | | | | | | | | | Center | | | | | | | | | | | | | | | | | | | | | | | | | | | | | | | | | | | | | | | | | | | | | | | | | | | | | | | | | | | | | | | | | | | | | | | | | | | | | | | | | | | | | | | | | | | | | | | | | | | | | | | | | | | | | | | | | | | | | | | | | | | | | | | | | | | | | | | 1910 | | | | | | | | | [address] | | | | | | | | | [address], | | | | | | | | | Hot | | | | | | | | | Spring | | | | | | | | | s, [place], | | | | | | | | | | | | | | | | | | [address]- | | | | | | | | | 7752, | | | | | | | | | Ph | | | | | | | | | (501) | | | | | | | | | 321-10 | | | | | | | | | 00 | | | | | | | | | | | | | | | | | | | | | | | | | | | | | | | | | | | | | | | | | | | | | | | | | | | | | | | | | | | | | | | | | | | | | | | | | | | | | | | | | | | | | | | | | | | | | | | | | | | | +--------+--------+--------+--------+--------+--------+--------+--------+ | 10/07/ | BMP, | | 8.2 | mg/dL | 8.5-10 | low | | | 2020 | serum | | | | .1 | | | | | or | | | | | | | | | plasma | | | | | | | | | | | | | | | | | | | | | | | | | | | | | | | | | | | | | calciu | | | | | Nation | | | | m | | | | | al | | | | serpl- | | | | | Park | | | | mcnc | | | | | [facility]ica | | | | | | | | | l | | | | | | | | | Center | | | | | | | | | | | | | | | | | | | | | | | | | | | | | | | | | | | | | | | | | | | | | | | | | | | | | | | | | | | | | | | | | | | | | | | | | | | | | | | | | | | | | | | | | | | | | | | | | | | | | | | | | | | | | | | | | | | | | | | | | | | | | | | | | | | | | | | 1910 | | | | | | | | | [address] | | | | | | | | [address], | | | | | | | | | Hot | | | | | | | | | Spring | | | | | | | | | s, [place], | | | | | | | | | | | | | | | | | | [address]- | | | | | | | | | 7752, | | | | | | | | | Ph | | | | | | | | | (501) | | | | | | | | | 321-10 | | | | | | | | | 00 | | | | | | | | | | | | | | | | | | | | | | | | | | | | | | | | | | | | | | | | | | | | | | | | | | | | | | | | | | | | | | | | | | | | | | | | | | | | | | | | | | | | | | | | | | | | | | | | | | | | +--------+--------+--------+--------+--------+--------+--------+--------+ | 10/07/ | BMP, | | 102 | mmol/L | 98-107 | normal | | | 2020 | serum | | | | | | | | | or | | | | | | | | | plasma | | | | | | | | | | | | | | | | | | | | | | | | | | | | | | | | | | | | | chlori | | | | | Nation | | | | de | | | | | al | | | | ser/pl | | | | | Park | | | | as | | | | | Medica | | | | | | | | | l | | | | | | | | | Center | | | | | | | | | | | | | | | | | | | | | | | | | | | | | | | | | | | | | | | | | | | | | | | | | | | | | | | | | | | | | | | | | | | | | | | | | | | | | | | | | | | | | | | | | | | | | | | | | | | | | | | | | | | | | | | | | | | | | | | | | | | | | | | | | | | | | | | 1910 | | | | | | | | | [address] | | | | | | | | | [address], | | | | | | | | | Hot | | | | | | | | | Spring | | | | | | | | | s, [place], | | | | | | | | | | | | | | | | | | [address]- | | | | | | | | | [address]752, | | | | | | | | | Ph | | | | | | | | | (501) | | | | | | | | | 321-10 | | | | | | | | | 00 | | | | | | | | | | | | | | | | | | | | | | | | | | | | | | | | | | | | | | | | | | | | | | | | | | | | | | | | | | | | | | | | | | | | | | | | | | | | | | | | | | | | | | | | | | | | | | | | | | | | +--------+--------+--------+--------+--------+--------+--------+--------+ | 10/07/ | BMP, | | 25.9 | mmol/L | 21.0-3 | normal | | | 2020 | serum | | | | 2.0 | | | | | or | | | | | | | | | plasma | | | | | | | | | | | | | | | | | | | | | | | | | | | | | | | | | | | | | CO2 | | | | | Nation | | | | serpl- | | | | | al | | | | scnc | | | | | Park | | | | | | | | | Medica | | | | | | | | | l | | | | | | | | | Center | | | | | | | | | | | | | | | | | | | | | | | | | | | | | | | | | | | | | | | | | | | | | | | | | | | | | | | | | | | | | | | | | | | | | | | | | | | | | | | | | | | | | | | | | | | | | | | | | | | | | | | | | | | | | | | | | | | | | | | | | | | | | | | | | | | | | | | [address] | | | | | | | | | [address], | | | | | | | | | Hot | | | | | | | | | Spring | | | | | | | | | s, [place], | | | | | | | | | | | | | | | | | | [address]- | | | | | | | | | [address]752, | | | | | | | | | Ph | | | | | | | | | (501) | | | | | | | | | 321-10 | | | | | | | | | 00 | | | | | | | | | | | | | | | | | | | | | | | | | | | | | | | | | | | | | | | | | | | | | | | | | | | | | | | | | | | | | | | | | | | | | | | | | | | | | | | | | | | | | | | | | | | | | | | | | | | | +--------+--------+--------+--------+--------+--------+--------+--------+ | 10/07/ | BMP, | | 276 | mOsm/k | 275-30 | normal | | | 2020 | serum | | | g | 0 | | | | | or | | | | | | | | | plasma | | | | | | | | | | | | | | | | | | | | | | | | | | | | | | | | | | | | | osmola | | | | | Nation | | | | lity | | | | | al | | | | serpl | | | | | Park | | | | calc | | | | | Medica | | | | | | | | | l | | | | | | | | | Center | | | | | | | | | | | | | | | | | | | | | | | | | | | | | | | | | | | | | | | | | | | | | | | | | | | | | | | | | | | | | | | | | | | | | | | | | | | | | | | | | | | | | | | | | | | | | | | | | | | | | | | | | | | | | | | | | | | | | | | | | | | | | | | | | | | | | | | 1910 | | | | | | | | | [address] | | | | | | | | | [address], | | | | | | | | | Hot | | | | | | | | | Spring | | | | | | | | | s, [place], | | | | | | | | | | | | | | | | | | [address]- | | | | | | | | | 7752, | | | | | | | | | Ph | | | | | | | | | (501) | | | | | | | | | 321-10 | | | | | | | | | 00 | | | | | | | | | | | | | | | | | | | | | | | | | | | | | | | | | | | | | | | | | | | | | | | | | | | | | | | | | | | | | | | | | | | | | | | | | | | | | | | | | | | | | | | | | | | | | | | | | | | | +--------+--------+--------+--------+--------+--------+--------+--------+ | 10/07/ | BMP, | | 0.9 | mg/dL | 0.6-1. | | | | 2020 | serum | | | | 3 | | | | | or | | | | | | | | | plasma | | | | | | | | | | | | | | | | | | | | | | | | | | | | | | | | | | | | | creat | | | | | Nation | | | | serpl- | | | | | al | | | | mcnc | | | | | Park | | | | | | | | | [facility]ica | | | | | | | | | l | | | | | | | | | Center | | | | | | | | | | | | | | | | | | | | | | | | | | | | | | | | | | | | | | | | | | | | | | | | | | | | | | | | | | | | | | | | | | | | | | | | | | | | | | | | | | | | | | | | | | | | | | | | | | | | | | | | | | | | | | | | | | | | | | | | | | | | | | | | | | | | | | | [address] | | | | | | | | | [address] | | [address], | | | | | | | | | Hot | | | | | | | | | Spring | | | | | | | | | s, [place], | | | | | | | | | | | | | | | | | | [address]- | | | | | | | | | [address]752, | | | | | | | | | Ph | | | | | | | | | (501) | | | | | | | | | 321-10 | | | | | | | | | 00 | | | | | | | | | | | | | | | | | | | | | | | | | | | | | | | | | | | | | | | | | | | | | | | | | | | | | | | | | | | | | | | | | | | | | | | | | | | | | | | | | | | | | | | | | | | | | | | | | | | | +--------+--------+--------+--------+--------+--------+--------+--------+ | 10/07/ | BMP, | | 82 | mL/min | 90-120 | low | | | 2020 | serum | | | | | | | | | or | | | | | | | | | plasma | | | | | | | | | | | | | | | | | | | | | | | | | | | | | | | | | | | | | eGFR | | | | | Nation | | | | junito | | | | | al | | | | n | | | | | Park | | | | americ | | | | | Medica | | | | an | | | | | l | | | | | | | | | Center | | | | | | | | | | | | | | | | | | | | | | | | | | | | | | | | | | | | | | | | | | | | | | | | | | | | | | | | | | | | | | | | | | | | | | | | | | | | | | | | | | | | | | | | | | | | | | | | | | | | | | | | | | | | | | | | | | | | | | | | | | | | | | | | | | | | | | | 1910 | | | | | | | | | [address], | | | | | | | | | Hot | | | | | | | | | Spring | | | | | | | | | s, [place], | | | | | | | | | | | | | | | | | | [address]- | | | | | | | | | 7752, | | | | | | | | | Ph | | | | | | | | | (501) | | | | | | | | | 321[address]10 | | | | | | | | | 00 | | | | | | | | | | | | | | | | | | | | | | | | | | | | | | | | | | | | | | | | | | | | | | | | | | | | | | | | | | | | | | | | | | | | | | | | | | | | | | | | | | | | | | | | | | | | | | | | | | | | +--------+--------+--------+--------+--------+--------+--------+--------+ | 10/07/ | BMP, | | 68 | mL/min | 90-120 | low | | | 2020 | serum | | | | | | | | | or | | | | | | | | | plasma | | | | | | | | | | | | | | | | | | | | | | | | | | | | | | | | | | | | | eGFR | | | | | Nation | | | | non-af | | | | | al | | | | rican | | | | | Park | | | | americ | | | | | Medica | | | | an | | | | | l | | | | | | | | | Center | | | | | | | | | | | | | | | | | | | | | | | | | | | | | | | | | | | | | | | | | | | | | | | | | | | | | | | | | | | | | | | | | | | | | | | | | | | | | | | | | | | | | | | | | | | | | | | | | | | | | | | | | | | | | | | | | | | | | | | | | | | | | | | | | | | | | | | [address] | | | | | | | | | [address] | [address], | | | | | | | | | Hot | | | | | | | | | Spring | | | | | | | | | s, [place], | | | | | | | | | | | | | | | | | | [address]- | | | | | | | | | 7752, | | | | | | | | | Ph | | | | | | | | | (501) | | | | | | | | | 321-10 | | | | | | | | | 00 | | | | | | | | | | | | | | | | | | | | | | | | | | | | | | | | | | | | | | | | | | | | | | | | | | | | | | | | | | | | | | | | | | | | | | | | | | | | | | | | | | | | | | | | | | | | | | | | | | | | +--------+--------+--------+--------+--------+--------+--------+--------+ | 10/07/ | BMP, | | 148 | mg/dL | 74-106 | high | | | 2020 | serum | | | | | | | | | or | | | | | | | | | plasma | | | | | | | | | | | | | | | | | | | | | | | | | | | | | | | | | | | | | glucos | | | | | Nation | | | | e | | | | | al | | | | serpl- | | | | | Park | | | | mcnc | | | | | [facility] | | | | | | | | | l | | | | | | | | | Center | | | | | | | | | | | | | | | | | | | | | | | | | | | | | | | | | | | | | | | | | | | | | | | | | | | | | | | | | | | | | | | | | | | | | | | | | | | | | | | | | | | | | | | | | | | | | | | | | | | | | | | | | | | | | | | | | | | | | | | | | | | | | | | | | | | | | | | [address] | | | | | | | | | [address], | | | | | | | | | Hot | | | | | | | | | Spring | | | | | | | | | s, [place], | | | | | | | | | | | | | | | | | | [address]- | | | | | | | | | 7752, | | | | | | | | | Ph | | | | | | | | | (501) | | | | | | | | | 321[address]10 | | | | | | | | | 00 | | | | | | | | | | | | | | | | | | | | | | | | | | | | | | | | | | | | | | | | | | | | | | | | | | | | | | | | | | | | | | | | | | | | | | | | | | | | | | | | | | | | | | | | | | | | | | | | | | | | +--------+--------+--------+--------+--------+--------+--------+--------+ | 10/07/ | BMP, | | 3.6 | mmol/L | 3.5-5. | normal | | | 2020 | serum | | | | 1 | | | | | or | | | | | | | | | plasma | | | | | | | | | | | | | | | | | | | | | | | | | | | | | | | | | | | | | potass | | | | | Nation | | | | ium | | | | | al | | | | ser/pl | | | | | Park | | | | as | | | | | Medica | | | | | | | | | l | | | | | | | | | Center | | | | | | | | | | | | | | | | | | | | | | | | | | | | | | | | | | | | | | | | | | | | | | | | | | | | | | | | | | | | | | | | | | | | | | | | | | | | | | | | | | | | | | | | | | | | | | | | | | | | | | | | | | | | | | | | | | | | | | | | | | | | | | | | | | | | | | | 1910 | | | | | | | | | [address] | [address] | [address], | | | | | | | | | Hot | | | | | | | | | Spring | | | | | | | | | s, [place], | | | | | | | | | | | | | | | | | | [address]- | | | | | | | | | 7752, | | | | | | | | | Ph | | | | | | | | | (501) | | | | | | | | | 321[address]10 | | | | | | | | | 00 | | | | | | | | | | | | | | | | | | | | | | | | | | | | | | | | | | | | | | | | | | | | | | | | | | | | | | | | | | | | | | | | | | | | | | | | | | | | | | | | | | | | | | | | | | | | | | | | | | | | +--------+--------+--------+--------+--------+--------+--------+--------+ | 10/07/ | BMP, | | 137 | mmol/L | 136-14 | normal | | | 2020 | serum | | | | 5 | | | | | or | | | | | | | | | plasma | | | | | | | | | | | | | | | | | | | | | | | | | | | | | | | | | | | | | sodium | | | | | Nation | | | | | | | | | al | | | | serpl- | | | | | Park | | | | scnc | | | | | Medica | | | | | | | | | l | | | | | | | | | Center | | | | | | | | | | | | | | | | | | | | | | | | | | | | | | | | | | | | | | | | | | | | | | | | | | | | | | | | | | | | | | | | | | | | | | | | | | | | | | | | | | | | | | | | | | | | | | | | | | | | | | | | | | | | | | | | | | | | | | | | | | | | | | | | | | | | | | | 1910 | | | | | | | | | [address] | | | [address], | | | | | | | | | Hot | | | | | | | | | Spring | | | | | | | | | s, [place], | | | | | | | | | | | | | | | | | | [address]- | | | | | | | | | 7752, | | | | | | | | | Ph | | | | | | | | | (501) | | | | | | | | | 321[address]10 | | | | | | | | | 00 | | | | | | | | | | | | | | | | | | | | | | | | | | | | | | | | | | | | | | | | | | | | | | | | | | | | | | | | | | | | | | | | | | | | | | | | | | | | | | | | | | | | | | | | | | | | | | | | | | | | +--------+--------+--------+--------+--------+--------+--------+--------+ | | XR, | | | | | | | | | kidney | | | | | | | | | + | | | | | | | | | ureter | | | | | | | | | + | | | | | | | | | bladde | | | | | | | | | r | | | | | | | | | | | No | | | | Nation | | | | | observ | | | | al | | | | | ation | | | | Park | | | | | record | | | | Medica | | | | | ed. | | | | l | | | | | | | | | Center | | | | | | | | | | | | | | | | | | (Imagi | | | | | | | | | ng) | | | | | | | | | | | | | | | | | | | | | | | | | | | | | | | | | | | | | | | | | | | | | | | | | | | | | | | | | | | | | | | | | | | | | | | | | | | | | | | | | | | | | | | | | | | | | | | | | | | | | | | | | | | | | | | | | | | | | | | | | | | | | | | | | | | | | | | 1910 | | | | | | | | | [address] | | | | | | | | | [address], | | | | | | | | | Hot | | | | | | | | | Spring | | | | | | | | | s | | | | | | | | | Nation | | | | | | | | | al | | | | | | | | | Park, | | | | | | | | | [place], | | | | | | | | | [address], | | | | | | | | | Ph | | | | | | | | | (501) | | | | | | | | | [address] | | | | | | | | | 75 | | | | | | | | | | | | | | | | | | | | | | | | | | | | | | | | | | | | | | | | | | | | | | | | | | | | | | | | | | | | | | | | | | | | | | | | | | | | | | | | | | | | | | | | | | | | | | | | | | | | +--------+--------+--------+--------+--------+--------+--------+--------+ Problems +---------+---------+---------+---------+---------+---------+---------+ | Name | Status | Last | Onset | Resolut | Lateral | Problem | | | | Modifie | Date | ion | ity | Type | | | | d Date | | Date | | | | | | | | | | | | | | | | | | | | | | | | | | | | | | | | | | | | | | | | | | | +---------+---------+---------+---------+---------+---------+---------+ | Adenoca | Active | | | | | | | rcinoma | | 020 | 020 | | | | | of | | | | | | | | rectum | | | | | | | | | | | | | | | | | | | | | | | | | | | | | | | | | | | | | | | | | | | | | | | +---------+---------+---------+---------+---------+---------+---------+ | Nausea | Active | | | | | | | and | | 019 | 019 | | | | | vomitin | | | | | | | | g | | | | | | | | | | | | | | | | | | | | | | | | | | | | | | | | | | | | | | | | | | | | | | | +---------+---------+---------+---------+---------+---------+---------+ Procedures Surgical History None re corded. Imaging Results None recorded. Medical Equipment None Reported. Allergies No known drug allergies - [facility] + + + + + + + | Name | Sig | Start | Stop Date | Status | Note | | | | Date | | | | | | | | | | | | | | | | | | | | | | | | | | | | | | | | + + + + + + + | | | | | active | | | | | | | | | | | | | | | | | | | | | | | | | | | | | | | | | | | | | | | | | | | | | hydrocodo | | | | | | | ne 5 | | | | | | | mg-acetam | | | | | | | inophen | | | | | | | 325 mg | | | | | | | tablet | | | | | | | | | | | | | | | | | | | | | | | | | | | | | | | | | | | | | | | | | | | | | | | | | | | | | | | | | | | | | | | | | | | | | | | | | | | | + + + + + + + | | | | | active | | | | | | | | | | | | | | | | | | | | | | | | | | | | | | | | | | | | | | | | | | | | | promethaz | | | | | | | ine 12.5 | | | | | | | mg tablet | | | | | | | | | | | | | | | | | | | | | | | | | | | | | | | | | | | | | | | | | | | | | | | | | | | | | | | | | | | | | | | | | | | | | | | | | | | | + + + + + + + | | | | | active | | | | | | | | | | | | | | | | | | | | | | | | | Take | | | | | | | 1 tablet | | | | | | | every 6 | | | | | | ondansetr | hours by | | | | | | on HCl 4 | oral | | | | | | mg tablet | route as | | | | | | | needed. | | | | | | | | | | | | | | | | | | | | | | | | | | | | | | | | | | | | | | | | | | | | | | | | | | | | | | | | | | | | | | | | | | | | + + + + + + + | | | | | active | | | | | | | | | | | | | | | | | | | | | | | | | TK 2 | | | | | | | TS PO QID | | | | | | | PRN | | | | | | diphenoxy | | | | | | | late-atro | | | | | | | pine 2.5 | | | | | | | mg-0.025 | | | | | | | mg tablet | | | | | | | | | | | | | | | | | | | | | | | | | | | | | | | | | | | | | | | | | | | | | | | | | | | | | | | | | | | | | | | | | | | | | | | | | | | | + + + + + + + | | | | | active | | | | | | | | | | | | | | | | | | | | | | | | | TK 1 | | | | | | | T PO TID | | | | | | | | | | | | | metronida | | | | | | | zole 500 | | | | | | | mg tablet | | | | | | | | | | | | | | | | | | | | | | | | | | | | | | | | | | | | | | | | | | | | | | | | | | | | | | | | | | | | | | | | | | | | | | | | | | | | + + + + + + + | | | | | active | | | | | | | | | | | | | | | | | | | | | | | | | Take | | | | | | | 1 tablet | | | | | | | every 6 | | | | | | hydrocodo | hours by | | | | | | ne 10 | oral | | | | | | mg-acetam | route. | | | | | | inophen | | | | | | | 325 mg | | | | | | | tablet | | | | | | | | | | | | | | | | | | | | | | | | | | | | | | | | | | | | | | | | | | | | | | | | | | | | | | | | | | | | | | | | | | | | | | | | | | | | + + + + + + + | | | | | active | | | | | | | | | | | | | | | | | | | | | | | | | | | | | | | | | | | | | | | | | | | | | tramadol | | | | | | | 50 mg | | | | | | | tablet | | | | | | | | | | | | | | | | | | | | | | | | | | | | | | | | | | | | | | | | | | | | | | | | | | | | | | | | | | | | | | | | | | | | | | | | | | | | + + + + + + + | | | | | active | | | | | | | | | | | | | | | | | | | | | | | | | TK 1 | | | | | | | T PO BID | | | | | | | | | | | | | ferrous | | | | | | | sulfate | | | | | | | 325 mg | | | | | | | (65 mg | | | | | | | iron) | | | | | | | tablet | | | | | | | | | | | | | | | | | | | | | | | | | | | | | | | | | | | | | | | | | | | | | | | | | | | | | | | | | | | | | | | | | | | | | | | | | | | | + + + + + + + | | | | | active | | | | | | | | | | | | | | | | | | | | | | | | | ROMAN | | | | | | | EXT TO | | | | | | | THE | | | | | | clotrimaz | AFFECTED | | | | | | ole-betam | AND | | | | | | ethasone | SURROUNDI | | | | | | 1 %-0.05 | NG AREAS | | | | | | % topical | BID IN | | | | | | cream | THE | | | | | | | MORNING | | | | | | | AND IN | | | | | | | THE JOSE | | | | | | | FOR 2 WKS | | | | | | | | | | | | | | | | | | | | | | | | | | | | | | | | | | | | | | | | | | | | | | | | | | | | | | | | | | | | | + + + + + + + | | | | | active | | | | | | | | | | | | | | | | | | | | | | | | | Take | | | | | | | 1 tablet | | | | | | | every 4 | | | | | | promethaz | hours by | | | | | | ine 25 mg | oral | | | | | | tablet | route as | | | | | | | needed. | | | | | | | | | | | | | | | | | | | | | | | | | | | | | | | | | | | | | | | | | | | | | | | | | | | | | | | | | | | | | | | | | | | | + + + + + + + | | | | | active | | | | | | | | | | | | | | | | | | | | | | | | | | | | | | | | | | | | | | | | | | | | | levofloxa | | | | | | | joseline 750 | | | | | | | mg tablet | | | | | | | | | | | | | | | | | | | | | | | | | | | | | | | | | | | | | | | | | | | | | | | | | | | | | | | | | | | | | | | | | | | | | | | | | | | | + + + + + + + | | | | | active | | | | | | | | | | | | | | | | | | | | | | | | | TK 2 | | | | | | | T PO | | | | | | | DIRECTED | | | | | | neomycin | | | | | | | 500 mg | | | | | | | tablet | | | | | | | | | | | | | | | | | | | | | | | | | | | | | | | | | | | | | | | | | | | | | | | | | | | | | | | | | | | | | | | | | | | | | | | | | | | | + + + + + + + | | | | | active | | | | | | | | | | | | | | | | | | | | | | | | | TK 1 | | | | | | | T PO BID | | | | | | | PRN | | | | | | diazepam | | | | | | | 5 mg | | | | | | | tablet | | | | | | | | | | | | | | | | | | | | | | | | | | | | | | | | | | | | | | | | | | | | | | | | | | | | | | | | | | | | | | | | | | | | | | | | | | | | + + + + + + + | | | | | active | | | | | | | | | | | | | | | | | | | | | | | | | | | | | | | | | | | | | | | | | | | | | Aleve | | | | | | | | | | | | | | | | | | | | | | | | | | | | | | | | | | | | | | | | | | | | | | | | | | | | | | | | | | | | | | | | | | | | | | | | | | | | + + + + + + + | | | | | active | | | | | | | | | | | | | | | | | | | | | | | | | MIX | | | | | | | AND DRINK | | | | | | | UTD | | | | | | GaviLyte- | | | | | | | G 236 | | | | | | | gram-22.7 | | | | | | | 4 | | | | | | | gram-6.74 | | | | | | | | | | | | | | gram-5.86 | | | | | | | gram | | | | | | | oral | | | | | | | solution | | | | | | | | | | | | | | | | | | | | | | | | | | | | | | | | | | | | | | | | | | | | | | | | | | | | | | | | | | | | | | | | | | | | | | | | | | | | + + + + + + + | | | | | active | | | | | | | | | | | | | | | | | | | | | | | | | MX | | | | | | | AND DRK | | | | | | | UTD | | | | | | Suprep | | | | | | | Bowel | | | | | | | Prep Kit | | | | | | | 17.5 | | | | | | | gram-3.13 | | | | | | | gram-1.6 | | | | | | | gram | | | | | | | oral | | | | | | | solution | | | | | | | | | | | | | | | | | | | | | | | | | | | | | | | | | | | | | | | | | | | | | | | | | | | | | | | | | | | | | | | | | | | | | | | | | | | | + + + + + + + History of Present Illness None recorded. Physical Exam + + + | | | | | | | | | | | | + + + | | | | Notes: | Patient is a 60-year-old | | | female. | | | | | | | + + + Review of Systems None recorded. Vitals None Recorded Social History + + + | | Never Smoker (Never) | | Smoking Status | | | | | | | | + + + | Sex | Unknown | | | | + + + Functional Status None recorded. Mental Status None recorded. Family History + + + + + + + | Relations | Descripti | Onset Age | of | Resolved | Notes | | hip | on | | this Age | Age | | | | | | | | | | | | | | | | | | | | | | | | | | | | | | + + + + + + + | Mother | Diabetes | | | | | | | mellitus | | | | | | | | | | | | | | | | | | | | | | | | | | | | | | | | | + + + + + + + | Mother | Sarcoma | | | | | | | | | | | | | | | | | | | | | | | | | | | | | | | | | + + + + + + + | Father | Chronic | | | | | | | obstructi | | | | | | | ve lung | | | | | | | disease | | | | | | | | | | | | | | | | | | | | | | | | | | | | | | | | | + + + + + + + Medical History + + + | Condition | Response | | | | + + + | Seizures/Epilepsy | N | | | | + + + | Bleeding Disorder | N | | | | + + + | Relative with stroke/cva | N | | | | + + + | Swelling in legs/feet | N | | | | + + + | HIV or AIDS | N | | | | + + + | Angina | N | | | | + + + | Breast Cancer | N | | | | + + + | Kidney Stones | N | | | | + + + | Gastric Reflux | N | | | | + + + | Urinary Tract Infection | N | | | | + + + | Recent Change in Bowel Habits | N | | | | + + + | Bloating | N | | | | + + + | Deep Vein Thrombosis | N | | | | + + + | Back Pain | N | | | | + + + | Asthma | N | | | | + + + | Alcoholism | N | | | | + + + | Circulation Problems | N | | | | + + + | Breast Pain | N | | | | + + + | Stroke | N | | | | + + + | Diabetes | N | | | | + + + | Constipation | N | | | | + + + | Insomnia | N | | | | + + + | Swelling of Ankles, Feet or Hands | N | | | | | | | + + + | Peptic Ulcer (stomach or duodenal) | N | | | | | | | + + + | Blurred Vision | N | | | | + + + | Cancer | N | | | | + + + | Colon Polyps | N | | | | + + + | Regurgitation | N | | | | + + + | Headache | N | | | | + + + | Thyroid Problems | N | | | | + + + | Heart Murmur | N | | | | + + + | Good Pastures | N | | | | + + + | Difficulty Walking | N | | | | + + + | Shortness of Breath | N | | | | + + + | Hepatitis | N | | | | + + + | Heart Disease | N | | | | + + + | Yellow Jaundice | N | | | | + + + | Ulcerative Colitis | N | | | | + + + | Rectal Bleeding | N | | | | + + + | Muscle Pain | N | | | | + + + | GERD | N | | | | + + + | Complication To Anesthesia | N | | | | + + + | Breast Lump | N | | | | + + + | Lung Disease | N | | | | + + + | Glaucoma | N | | | | + + + | Gastrointestinal Disease | N | | | | + + + | Pancreatitis | N | | | | + + + | Blood in Urine | N | | | | + + + | Recent Weight Change | N | | | | + + + | Depression | N | | | | + + + | Cold feet and legs | N | | | | + + + | Sores on legs | N | | | | + + + | Wheezing | N | | | | + + + | Warfarin Management | N | | | | + + + | Fatigue | N | | | | + + + | Difficulty Swallowing | N | | | | + + + | Black, Tarry Stools | N | | | | + + + | High Blood Pressure | N | | | | + + + | Rheumatic Fever | N | | | | + + + | Frequent Urination | N | | | | + + + | Discolored feet and legs | N | | | | + + + | Numbness | N | | | | + + + | Aortic Aneurysm | N | | | | + + + | Gallbladder disease | N | | | | + + + | Kidney Failure | N | | | | + + + | STOMACH OR GI ULCERS | N | | | | + + + | Emphysema | N | | | | + + + | Fever | N | | | | + + + | Spitting up Blood | N | | | | + + + | Anemia | N | | | | + + + | Mouth Sores | N | | | | + + + | Diarrhea | N | | | | + + + | Kidney Disease | N | | | | + + + | Palpitation | N | | | | + + + | Hearing Loss | N | | | | + + + | Blood Clots | N | | | | + + + | Diverticulitis | N | | | | + + + | Abdominal Pain | N | | | | + + + | High Cholesterol | N | | | | + + + | Leg or Foot Ulcers | N | | | | + + + | Memory Loss or Confusion | N | | | | + + + | Chronic or frequent cough | N | | | | + + + | Burning with Urination | N | | | | + + + | Bleeding or Bruising tendency | N | | | | + + + | Enlarged Glands | N | | | | + + + | Excessive Thirst or Urination | N | | | | + + + | Ringing in Ears | N | | | | + + + | Nausea or Vomiting | N | | | | + + + | Osteoporosis | N | | | | + + + | Poor Appetite | N | | | | + + + | Hiatal Hernia | N | | | | + + + | Loss of Appetite | N | | | | + + + | Mitral Valve Prolapse | N | | | | + + + | Varicose Veins | N | | | | + + + | Reflux | N | | | | + + + | Arthritis | N | | | | + + + | Liver Disease | N | | | | + + + | Peripheral Arterial Disease | N | | | | + + + | Itching | N | | | | + + + | Gallstones | N | | | | + + + | Gout | N | | | | + + + | Elevated Cholesterol | N | | | | + + + | Peripheral Vascular Disease (PVD) | N | | | | | | | + + + | Joint Pain or Swelling | N | | | | + + + | Abnormal Mammogram | N | | | | + + + | Phlebitis | N | | | | + + + | Sexually Transmitted Disease | N | | | | + + + | Blood Transfusions | N | | | | + + + | Angioplasty (balloon) | N | | | | + + + | Heartburn | N | | | | + + + | Crohns Disease | N | | | | + + + | Heat or cold intolerance | N | | | | + + + | Belching | N | | | | + + + Gynecological History No gynecological history recorded. Obstetrics History GPAL: G 0 P 0 0 0 0 Immunizations None recorded. Past Encounters None Reported. Goals Section + + + + + + + | Goal | Descripti | Status | Start | Updated | Updated | | | on | | Date | by | on | | | | | | | | | | | | | | | | | | | | | | | | | | | | | + + + + + + + + + | None Recorded | + + Health Concerns Section + + | Related Observation | + + | None Recorded | + + + + + + + | Concern | Status | Updated by | Updated on | | | | | | | | | | | | | | | | + + + + + | None Recorded | | | | | | | | | | | | | | | | | | | + + + + +"
[2020-06-18 17:42] VITALS: BP 108/60
[2020-06-18 19:42] VITALS: BP 110/56
[2020-06-19 04:00] VITALS: BP 132/69
[2020-06-19 05:46] LABS: BASOPHILS 0 % (0-2); EOSINOPHILS 2.9 % (0-7); HEMATOCRIT 30.1 % (36.0-48.0); HEMOGLOBIN 9.3 g/dL (12-16); IMMATURE GRANULOCYTES 0.1 % (0-5); LYMPHOCYTES 13.2 % (15-50); MCHC 30.9 g/dL (31.0-37.0); MCV 87.2 fL (80.0-100.0); MEAN PLATELET VOLUME 9.7 fL (7.4-10.4); MONOCYTES 7.2 % (2-11); NEUTROPHILS 76.6 % (40-80); PLATELET COUNT 176 10x3/uL (130-400); RBC 3.45 10x6/uL (4.00-5.40); RDW 14.5 % (11.5-14.5)
[2020-06-19 05:52] LABS: CALC OSMOLALITY 273 mosm/kg (275-300); CALCIUM 8.1 mg/dL (8.5-10.1); CARBON DIOXIDE 28.7 mmol/L (21.0-32.0); CHLORIDE - SERUM 105 mmol/L (98-107); CREATININE - SERUM 0.6 mg/dL (0.6-1.3); GLUCOSE 91 mg/dL (74-106); POTASSIUM - SERUM 3.2 mmol/L (3.5-5.1); SODIUM 138 mmol/L (136-145); UREA NITROGEN 7 mg/dL (7-18); eGFR NON AFRICAN AMERICAN > 90 mL/min (90-120)
[2020-06-19 05:56] LABS: WBC 6.8 10x3/uL (4.8-10.8)
--- NOTE | 2020-06-19 07:33 | NUR ---
PATIENT IN BED RESTING, AROUSES TO VOICE. DENIES NEEDS AT THIS TIME. BED LOW POSITION. CALL LIGHT IN REACH. WILL CONTINUE TO MONITOR.
--- NOTE | 2020-06-19 07:41 | NUR ---
LAB CAME BACK THIS AM. POTASSIUM OF 3.2
[2020-06-19 09:29] VITALS: BP 129/56
[2020-06-19 12:25] VITALS: Ht 167.6 cm; Wt 68.0 kg
[2020-06-19 13:03] VITALS: BP 113/62
[2020-06-19 16:34] VITALS: BP 124/65
--- NOTE | 2020-06-19 20:00 | NUR ---
DRESSING TO ABD CHANGED PER ORDERS. STERI STRIPS INTACT TO INCISION.BANDAIDS X 2 INTACT TO LAP SITES. COLOSTOMY INTACT TO LEFT ABD. IV TO LEFT PORT WITHOUT REDNESS OR EDEMA NOTED. CL IN REACH
[2020-06-19 20:01] VITALS: BP 134/67
--- NOTE | 2020-06-20 03:00 | NUR ---
I have reviewed this patient and I concur with the Shift Assessment completed by the Licensed Practical Nurse today this shift.
[2020-06-20 07:25] LABS: BASOPHILS 0.2 % (0-2); EOSINOPHILS 3.1 % (0-7); HEMATOCRIT 31.1 % (36.0-48.0); HEMOGLOBIN 9.3 g/dL (12-16); IMMATURE GRANULOCYTES 0.4 % (0-5); LYMPHOCYTES 10.9 % (15-50); MCH 25.5 pg (26.0-34.0); MCHC 29.9 g/dL (31.0-37.0); MCV 85.4 fL (80.0-100.0); MEAN PLATELET VOLUME 9.4 fL (7.4-10.4); MONOCYTES 9.8 % (2-11); NEUTROPHILS 75.6 % (40-80); PLATELET COUNT 175 10x3/uL (130-400); RBC 3.64 10x6/uL (4.00-5.40); RDW 14.1 % (11.5-14.5); WBC 5.5 10x3/uL (4.8-10.8)
[2020-06-20 07:32] LABS: CALC OSMOLALITY 276 mosm/kg (275-300); CALCIUM 7.9 mg/dL (8.5-10.1); CARBON DIOXIDE 25.5 mmol/L (21.0-32.0); CHLORIDE - SERUM 107 mmol/L (98-107); CREATININE - SERUM 0.5 mg/dL (0.6-1.3); GLUCOSE 89 mg/dL (74-106); POTASSIUM - SERUM 3.2 mmol/L (3.5-5.1); SODIUM 141 mmol/L (136-145); eGFR NON AFRICAN AMERICAN > 90 mL/min (90-120)
[2020-06-20 07:35] LABS: UREA NITROGEN 5 mg/dL (7-18)
[2020-06-20 09:21] VITALS: BP 144/69
--- NOTE | 2020-06-20 10:01 | NUR ---
PATIENT AT SIDE OF BED. DENIES PAIN OR NEEDS AT THIS TIME. BED LOW POSITION, CALL LIGHT IN REACH. FREE FROM SIGNS OF DISTRESS. WILL CONTINUE TO MONITOR.
[2020-06-20 14:25] VITALS: BP 119/56
[2020-06-20 17:14] VITALS: BP 128/64
--- NOTE | 2020-06-20 19:00 | NUR ---
PATIENT ALERT AND ORIENTED AMBULATING AROUND ROOM. PATIENT DENIES PAIN AT THIS TIME. ABDOMINAL ASSESSMNET PERFOMED, SEE FLOW SHEET. PATIENT COLOSTOMY, INDEOENDENT WITH CARE. DENIES FURTHER NEEDS AT THIS TIME. IV INFUSING PER ORDER TO CHEST PORT. PATIENT DENIES NEEDS AT THIS TIME. CALL LIGHT CLOSE. CPOC.
[2020-06-20 20:00] VITALS: BP 134/60
[2020-06-21] VITALS: BP 135/62
[2020-06-21] MEDS ORDERED: HYDROCODON-ACE1 EAC7 PO (00:34)
[2020-06-21 04:00] VITALS: BP 130/55
--- NOTE | 2020-06-21 06:27 | NUR ---
PORT DEACCESSED. PATIENT TOLERATED WELL. DRESSING APPLIED AND ADHERED TO SKIN.
--- NOTE | 2020-06-21 07:30 | NUR ---
AWAKE AND ALERT. ORIENTED X3. NO C/O AT THIS TIME. LUNGS ARE CLEAR BILATERALLY, NO COUGH NOTED. SKIN IS INTACT WITHOUT REDNESS EXCEPT INCISION TO RIGHT SIDE OF ABDOMEN AND 3 SMALL INSERTION SITES TO ABDOMEN WHICH ALL HAVE CLEAN DRY DRESSINGS IN PLACE. COLOSTOMY IS PATENT WITH DARK LIQUID STOOL. STOMA IS PINK AND VIABLE. LEFT PORT NOTED BUT NOT ACCESSED AT THIS TIME. DENIES NEEDS.
[2020-06-21 08:16] VITALS: BP 140/78
--- NOTE | 2020-06-21 09:22 | MORECARE ---
CASE MANAGEMENT DISCHARGE SUMMARY PATIENT: DERRELL VARGAS UNIT: [id number] ADM DATE: 06/18/20 AGE: 60 : 60 SEX: F ROOM/BED: D.2203 AUTHOR: YASIR VINSON PHYSICIAN: REFERRING PHYSICIAN: LISBET HEADLEY MD DATE OF SERVICE: 06/21/20 Discharge Plan Patient Name: DERRELL VARGAS [facility] [facility] 1960 Planned Disposition: Home Anticipated Discharge Date: 06/21/20 Discharge Date: Expected LOS: 3 Initial Reviewer: [email or web address] Initial Review Date: 06/21/2020 Generated: 06/21/20 10:22 am DCPIA - Discharge Planning Initial Assessment Updated by [email or web address]: Bryce Lazaro on 06/21/20 9:19 am * Is the patient Alert and Oriented? Yes * How many steps to enter\exit or inside your home? 0/0 * PCP Dr. Zhao * Pharmacy [facility] on [facility] * Preadmission Environment Home with Family * ADLs Independent * Equipment Ostomy Supplies * Other Equipment none * List name and contact numbers for known caregivers / representatives who currently or will assist patient after discharge: Josef Vargas (Spouse) [phone] * Verbal permission to speak to the caregivers and representatives has been obtained from the patient. Yes * Community resources currently utilized None * Please name any agencies selected above. none * Additional services required to return to the preadmission environment? No * Can the patient safely return to the preadmission environment? Yes * Has this patient been hospitalized within the prior 30 days at any hospital? No Patient Name: DERRELL VARGAS Page [id number] at 0922 All edits/amendments must be made on the electronic document DICTATION DATE: 06/21/20921 RETAIL SPECIAL EVENT ASSOCIATE: KYLIE 06/21/20921 RPT#: [id number] DC DATE: STATUS: ADM IN [facility] [address] [place] [address] END OF REPORT
--- NOTE | 2020-06-21 09:25 | NUR ---
DISCHARGED TO HOME AMBULATORY WITH . DISCHARGE INSTRUCTIONS GIVEN BOTH VERBALLY AND WRITTEN. ALL QUESTIONS ANSWERED. PATIENT VERBALIZED UNDERSTANDING OF SAME. NEEDED PRESCRIPTIONS GIVEN TO PATIENT. ALL BELONGINGS WITH PATIENT.
--- NOTE | 2020-06-21 09:30 | MORECARE ---
CASE MANAGEMENT DISCHARGE SUMMARY PATIENT: DERRELL VARGAS UNIT: [id number] ADM DATE: 06/18/20 AGE: 60 : 60 SEX: F ROOM/BED: D.2203 AUTHOR: YASIR VINSON PHYSICIAN: REFERRING PHYSICIAN: LISBET HEADLEY MD DATE OF SERVICE: 06/21/20 Discharge Plan Patient Name: DERRELL VARGAS Facility: [facility]:[place] : 1960 Planned Disposition: Home Anticipated Discharge Date: 06/21/20 Discharge Date: Expected LOS: 3 Initial Reviewer: DIANA Initial Review Date: 06/21/2020 Generated: 06/21/20 10:29 am Comments DCP- Discharge Planning Updated by [email or web address]: Bryce Lazaro on 06/21/20 8:[address] Patient Name: DERRELL VARGAS Admission Status: Elective Accout number: [id number] Admission Date: 06-18-2020 : 1960 Admission Diagnosis:STENOSIS OF ANUS AND RECTUM Attending: LISBET HEADLEY Current LOS: 3 Anticipated DC Date: 06-21-2020 Planned Disposition: Home Primary Insurance: [employer] Discharge Planning Comments: CM met with patient to complete DC plan and needs. CM educated patient on the CM role and verbal consent was given by patient to complete assessment. CM verified patient's address, phone number, and emergency contact phone numbers. Patient lives at home with her spouse Josef Vargas ([phone]). At discharge patient plans to return and feels this is a safe discharge. The patient has 0 steps to navigate to enter the home and it is safe. Patient fills her medications at [facility] on [address]. CM discussed availability of home health, rehab services, and medical equipment. Patient declined HHS, SNF, IPR, and DME. The patient neither mentioned nor discussed any other discharge needs and she is satisfied with DC plan. Transportation provider at discharge will be with her , Josef. CM will continue to follow and will assist as needed with dc plans/needs. Floor Person: Bryce Lazaro DCPIA - Discharge Planning Initial Assessment Updated by [email or web address]: Bryce Lazaro on 06/21/20 9:19 am * Is the patient Alert and Oriented? Yes * How many steps to enter\exit or inside your home? 0/0 * PCP Dr. Zhao * Pharmacy [facility] on [address] * Preadmission Environment Home with Family * ADLs Independent * Equipment Ostomy Supplies * Other Equipment none * List name and contact numbers for known caregivers / representatives who currently or will assist patient after discharge: Josef Vargas (Spouse) [phone] * Verbal permission to speak to the caregivers and representatives has been obtained from the patient. Yes * Community resources currently utilized None * Please name any agencies selected above. none * Additional services required to return to the preadmission environment? No * Can the patient safely return to the preadmission environment? Yes * Has this patient been hospitalized within the prior 30 days at any hospital? No Last DP export: 06/21/20 8:22 Patient Name: DERRELL VARGAS Page [id number] at 0930 All edits/amendments must be made on the electronic document DICTATION DATE: 06/21/20928 ASSISTANT SALES CENTER MANAGER: KYLIE 06/21/20928 RPT#: [id number] DC DATE: STATUS: ADM IN [facility] [address] [place] [address] END OF REPORT
--- NOTE | 2020-06-22 09:03 | MORECARE ---
CASE MANAGEMENT DISCHARGE SUMMARY PATIENT: DERRELL VARGAS UNIT: [id number] ADM DATE: 06/16/20 AGE: 60 : 60 SEX: F ROOM/BED: D.2203 AUTHOR: YASIR VINSON PHYSICIAN: REFERRING PHYSICIAN: LISBET HEADLEY MD DATE OF SERVICE: 06/22/20 Discharge Plan Patient Name: DERRELL VARGAS Facility: [facility]:[place] : 1960 Planned Disposition: Home Anticipated Discharge Date: 06/21/20 Discharge Date: 06/21/2020 Expected LOS: 3 Initial Reviewer: DIANA Initial Review Date: 06/21/2020 Generated: 06/22/20 10:03 am Comments DCP- Discharge Planning Updated by [email or web address]: Bryce Lazaro on 06/21/20 8:[address] Patient Name: DERRELL VARGAS Admission Status: Elective Accout number: [id number] Admission Date: 06-18-2020 : 1960 Admission Diagnosis:STENOSIS OF ANUS AND RECTUM Attending: LISBET HEADLEY Current LOS: 3 Anticipated DC Date: 06-21-2020 Planned Disposition: Home Primary Insurance: [employer] Discharge Planning Comments: CM met with patient to complete DC plan and needs. CM educated patient on the CM role and verbal consent was given by patient to complete assessment. CM verified patient's address, phone number, and emergency contact phone numbers. Patient lives at home with her spouse Josef Vargas ([phone]). At discharge patient plans to return and feels this is a safe discharge. The patient has 0 steps to navigate to enter the home and it is safe. Patient fills her medications at [facility] on [facility]. CM discussed availability of home health, rehab services, and medical equipment. Patient declined HHS, SNF, IPR, and DME. The patient neither mentioned nor discussed any other discharge needs and she is satisfied with DC plan. Transportation provider at discharge will be with her , Josef. CM will continue to follow and will assist as needed with dc plans/needs. Pediatric Occupational Therapist: Bryce Lazaro DCPIA - Discharge Planning Initial Assessment Updated by [email or web address]: Bryce Lazaro on 06/21/20 9:19 am * Is the patient Alert and Oriented? Yes * How many steps to enter\exit or inside your home? 0/0 * PCP Dr. Zhao * Pharmacy [facility] on [address] * Preadmission Environment Home with Family * ADLs Independent * Equipment Ostomy Supplies * Other Equipment none * List name and contact numbers for known caregivers / representatives who currently or will assist patient after discharge: Josef Vargas (Spouse) [phone] * Verbal permission to speak to the caregivers and representatives has been obtained from the patient. Yes * Community resources currently utilized None * Please name any agencies selected above. none * Additional services required to return to the preadmission environment? No * Can the patient safely return to the preadmission environment? Yes * Has this patient been hospitalized within the prior 30 days at any hospital? No Last DP export: 06/21/20 8:30 Patient Name: DERRELL VARGAS Page [id number] at 0903 All edits/amendments must be made on the electronic document DICTATION DATE: 06/22/20902 ICE SCRAPER: KYLIE 06/22/20902 RPT#: [id number] DC DATE:06/21/20 STATUS: DIS IN [facility] [address] [place] [address] END OF REPORT
== END 2020-06-21 09:25 | disposition home or self-care (01) | DRG 330 ==
LOC: OBSVTIME → D.SDCHOLD 06-16 11:30 → D.MS 06-16 16:00 → OBSVTIME 06-16 17:33 → D.MS 06-18 08:50
PROVIDERS: Anesthesiology; ADMIT Surgery; ATTEND Surgery
PROC: 0UQG0ZZ Repair Vagina, Open Approach (ICD-10-PCS; principal; 2020-06-16 11:30)
DX: K56.7 Ileus, unspecified (principal); N99.72 Accidental puncture and laceration of a genitourinary system organ or structure during other procedure; K62.4 Stenosis of anus and rectum; Z93.3 Colostomy status; Z85.048 Personal history of other malignant neoplasm of rectum, rectosigmoid junction, and anus